=== PATIENT | female | born 1950 | race Caucasian/White ===

== ENCOUNTER 2016-07-03 12:10 | Emergency (ER) | payer MEDICARE, MEDICAID ==
[2016-07-03] MEDS ORDERED: NS 0.9% 1000 ML* 1,000 ML IV ONE (13:00)
[2016-07-03 13:14] LABS: Hematocrit 43 % (35-47); Hemoglobin 13.8 g/dl (12.0-16.0); Mean Corpuscular HGB Conc 32 g/dl (31-36); Mean Corpuscular Hemoglobin 28 pg (27-31); Mean Corpuscular Volume 86 fL (80-97); Mean Platelet Volume 8 um3 (7.4-10.4); Red Cell Distribution Width 14 % (10.5-15); White Blood Count 5.9 10^3/ul (3.5-10.8)
--- NOTE | 2016-07-03 13:24 | RAD ---
HISTORY: Weakness COMPARISONS: None VIEWS:1: Single frontal portable view of the chest at 1:11 PM FINDINGS: LINES AND TUBES: None. CARDIOMEDIASTINAL SILHOUETTE: The cardiomediastinal silhouette is normal for portable technique. PLEURA: The costophrenic angles are sharp. No pleural abnormalities are noted. LUNG PARENCHYMA: The lungs are clear. ABDOMEN: The upper abdomen is clear. There is no subphrenic gas. BONES AND SOFT TISSUES: No bone or soft tissue abnormalities are noted. IMPRESSION: NO ACTIVE CARDIOPULMONARY DISEASE.
[2016-07-03 13:31] LABS: Albumin 4.6 g/dL (3.2-5.2); BUN/Creatinine Ratio 29.3 (8-20); C Reactive Protein 3.78 mg/L (< 5.00); Calcium 10.1 mg/dL (8.6-10.3); EGFR African American 51.2 (>60); EGFR Non-African American 39.8 (>60); Globulin 3.7 g/dL (2-4); Magnesium 1.7 mg/dL (1.9-2.7); Potassium 3.7 mmol/L (3.5-5.0); Total Bilirubin 0.6 mg/dL (0.2-1.0); Total Protein 8.3 g/dL (6.4-8.9); Troponin I 0.03 ng/mL (<0.04)
[2016-07-03 14:03] LABS: TSH (Thyroid Stimulating Horm) 2.07 mcIU/mL (0.34-5.60)
[2016-07-03 14:31] LABS: Urine Bacteria Absent (Absent); Urine Bilirubin Negative (Negative); Urine Glucose Negative (Negative); Urine Nitrite Negative (Negative)
[2016-07-03 16:09] LABS: Urine Bacteria Absent (Absent); Urine Bilirubin Negative (Negative); Urine Glucose Negative (Negative); Urine Nitrite Negative (Negative)
[2016-07-03 16:41] VITALS: BP 132/62
[2016-07-03] MEDS ORDERED: Magnesium Oxide TAB* 400 MG PO ONE (16:55)
--- NOTE | 2016-07-03 17:03 | ED ---
Daryl Cruz Billy, scribed for Mikhail Santana MD on 07/03/16 at 1259 . Complex/Multi-Sys Presentation - HPI Summary HPI Summary: Patient is a 66 year-old female coming to [facility] for evaluation of generalized weakness, fatigue, and decreased appetite. Her daughter is here from [place] with her and she states that the patient has not left the apartment in a week, which is not normal for her. Daughter is also quite unsure if the patient has been taking her daily medications. The patient was treated for a UTI 2 weeks ago , and it had appeared that her symptoms were improving until 1 week ago. No known fevers, chills, vomiting, or diarrhea. No cough. There is some burning with urination. - History Of Current Complaint Chief Complaint: EDWeakness Time Seen by Provider: 07/03/16 12:52 Hx Obtained From: Patient Onset/Duration: Gradual Onset, Lasting Days Timing: Constant Severity Currently: Moderate Severity Initially: Moderate Aggravating Factor(s): none Alleviating Factor(s): none Associated Signs And Symptoms: Positive: Weakness, Nausea, Dysuria. Negative: Cough, Vomiting, Diarrhea, Fever - Allergies/Home Medications Allergies/Adverse Reactions: Allergies Allergy/AdvReac Type Severity Reaction Status Date / Time Sulfa Antibiotics Allergy Hives Verified 07/03/16 13:20 PMH/Surg Hx/FS Hx/Imm Hx Endocrine/Hematology History: Reports: Hx Diabetes, Hx Thyroid Disease Cardiovascular History: Reports: Hx Hypercholesterolemia, Hx Hypertension - Surgical History Surgery Procedure, Year, and Place: cholecystectomy, hysterectomy Infectious Disease History: No Infectious Disease History: Denies: Traveled Outside the [place] in Last 30 Days - Family History Known Family History: Positive: Hypertension, Diabetes - Social History Alcohol Use: None Hx Substance Use: No Substance Use Type: Reports: None Hx Tobacco Use: No Smoking Status (MU): Never Smoked Tobacco Review of Systems Positive: Fatigue. Negative: Fever, Chills Negative: Cough Gastrointestinal: Other - decreased oral intake Positive: Nausea. Negative: Vomiting, Diarrhea Positive: dysuria Positive: Weakness All Other Systems Reviewed And Are Negative: Yes Physical Exam - Summary Physical Exam Summary: VITAL SIGNS: Reviewed. GENERAL: Patient is an obese female who is lying comfortable in the stretcher. Patient is not in any acute respiratory distress. HEAD AND FACE: No signs of trauma. No ecchymosis, hematomas or skull depressions. No sinus tenderness. EYES: PERRLA, EOMI x 2, No injected conjunctiva, no nystagmus. EARS: Hearing grossly intact. Ear canals and tympanic membranes are within normal limits. MOUTH: Oropharynx within normal limits. NECK: Supple, trachea is midline, no adenopathy, no JVD, no carotid bruit, no c- spine tenderness, neck with full ROM. CHEST: Symmetric, no tenderness at palpation LUNGS: Clear to auscultation bilaterally. No wheezing or crackles. CVS: Regular rate and rhythm, S1 and S2 present, no murmurs or gallops appreciated. ABDOMEN: Soft, non-tender. No signs of distention. No rebound no guarding, and no masses palpated. Bowel sounds are normal. EXTREMITIES: FROM in all major joints, no edema, no cyanosis or clubbing. NEURO: Alert and oriented x 3. No acute neurological deficits. Speech is normal and follows commands. SKIN: Dry and warm Triage Information Reviewed: Yes Vital Signs On Initial Exam: Initial Vitals Temp Pulse Resp BP Pulse Ox 97.9 F 89 16 151/68 100 07/03/16 12:14 07/03/16 12:14 07/03/16 12:14 07/03/16 12:14 07/03/16 12:14 Vital Signs Reviewed: Yes Diagnostics - Vital Signs Vital Signs Temp Pulse Resp BP Pulse Ox 07/03/16 12:14 97.9 F 89 16 151/68 100 - Laboratory Lab Results: Lab Results 07/03/16 07/03/16 07/03/16 Range/Units 12:50 13:00 13:00 WBC 5.9 (3.5-10.8) 10^3/ul RBC 5.00 (4.0-5.4) 10^6/ul Hgb 13.8 (12.0-16.0) g/dl Hct 43 (35-47) % MCV 86 (80-97) fL MCH 28 (27-31) pg MCHC 32 (31-36) g/dl RDW 14 (10.5-15) % Plt Count 213 (150-450) 10^3/ul MPV 8 (7.4-10.4) um3 Neut % (Auto) 69.2 (38-83) % Lymph % (Auto) 22.8 L (25-47) % [place] % (Auto) 7.1 (1-9) % Eos % (Auto) 0.7 (0-6) % Baso % (Auto) 0.2 (0-2) % Absolute Neuts (auto) 4.1 (1.5-7.7) 10^3/ul Absolute Lymphs (auto) 1.3 (1.0-4.8) 10^3/ul Absolute Monos (auto) 0.4 (0-0.8) 10^3/ul Absolute Eos (auto) 0 (0-0.6) 10^3/ul Absolute Basos (auto) 0 (0-0.2) 10^3/ul Absolute Nucleated RBC 0.01 10^3/ul Nucleated RBC % 0.2 Sodium 138 (133-145) mmol/L Potassium 3.7 (3.5-5.0) mmol/L Chloride 99 L (101-111) mmol/L Carbon Dioxide 26 (22-32) mmol/L Anion Gap 13 H (2-11) mmol/L BUN 39 H (6-24) mg/dL Creatinine 1.33 H (0.51-0.95) mg/dL Est GFR ( Amer) 51.2 (>60) Est GFR (Non-Af Amer) 39.8 (>60) BUN/Creatinine Ratio 29.3 H (8-20) Glucose 133 H (70-100) mg/dL Lactic Acid (0.5-2.0) mmol/L Calcium 10.1 (8.6-10.3) mg/dL Magnesium 1.7 L (1.9-2.7) mg/dL Total Bilirubin 0.60 (0.2-1.0) mg/dL AST 26 (13-39) U/L ALT 23 (7-52) U/L Alkaline Phosphatase 86 (34-104) U/L Troponin I 0.03 (<0.04) ng/mL C-Reactive Protein 3.78 (< 5.00) mg/L B-Natriuretic Peptide ( - 100) pg/mL Total Protein 8.3 (6.4-8.9) g/dL Albumin 4.6 (3.2-5.2) g/dL Globulin 3.7 (2-4) g/dL Albumin/Globulin Ratio 1.2 (1-3) TSH 2.07 (0.34-5.60) mcIU/mL Urine Color Yellow Urine Appearance Cloudy Urine pH 5.0 (5-9) Ur Specific [place] 1.021 (1.010-1.030) Urine Protein 1+(30 mg/dl) H (Negative) Urine Ketones 1+ H (Negative) Urine Blood 1+ H (Negative) Urine Nitrate Negative (Negative) Urine Bilirubin Negative (Negative) Urine Urobilinogen Negative (Negative) Ur Leukocyte Esterase 3+ H (Negative) Urine WBC (Auto) 3+(>20/hpf) H (Absent) Urine RBC (Auto) 2+(6-10/hpf) H (Absent) Ur Squamous Epith Cells Present H (Absent) Ur Renal Epithelial Cell Present H (Absent) Urine Bacteria Absent (Absent) Hyaline Casts Present H (Absent) Urine Glucose Negative (Negative) 07/03/16 07/03/16 07/03/16 Range/Units 13:00 13:00 15:06 WBC (3.5-10.8) 10^3/ul RBC (4.0-5.4) 10^6/ul Hgb (12.0-16.0) g/dl Hct (35-47) % MCV (80-97) fL MCH (27-31) pg MCHC (31-36) g/dl RDW (10.5-15) % Plt Count (150-450) 10^3/ul MPV (7.4-10.4) um3 Neut % (Auto) (38-83) % Lymph % (Auto) (25-47) % [place] % (Auto) (1-9) % Eos % (Auto) (0-6) % Baso % (Auto) (0-2) % Absolute Neuts (auto) (1.5-7.7) 10^3/ul Absolute Lymphs (auto) (1.0-4.8) 10^3/ul Absolute Monos (auto) (0-0.8) 10^3/ul Absolute Eos (auto) (0-0.6) 10^3/ul Absolute Basos (auto) (0-0.2) 10^3/ul Absolute Nucleated RBC 10^3/ul Nucleated RBC % Sodium (133-145) mmol/L Potassium (3.5-5.0) mmol/L Chloride (101-111) mmol/L Carbon Dioxide (22-32) mmol/L Anion Gap (2-11) mmol/L BUN (6-24) mg/dL Creatinine (0.51-0.95) mg/dL Est GFR ( Amer) (>60) Est GFR (Non-Af Amer) (>60) BUN/Creatinine Ratio (8-20) Glucose (70-100) mg/dL Lactic Acid 1.6 (0.5-2.0) mmol/L Calcium (8.6-10.3) mg/dL Magnesium (1.9-2.7) mg/dL Total Bilirubin (0.2-1.0) mg/dL AST (13-39) U/L ALT (7-52) U/L Alkaline Phosphatase (34-104) U/L Troponin I (<0.04) ng/mL C-Reactive Protein (< 5.00) mg/L B-Natriuretic Peptide 23 ( - 100) pg/mL Total Protein (6.4-8.9) g/dL Albumin (3.2-5.2) g/dL Globulin (2-4) g/dL Albumin/Globulin Ratio (1-3) TSH (0.34-5.60) mcIU/mL Urine Color Yellow Urine Appearance Clear Urine pH 5.0 (5-9) Ur Specific [place] 1.021 (1.010-1.030) Urine Protein Negative (Negative) Urine Ketones 1+ H (Negative) Urine Blood 1+ H (Negative) Urine Nitrate Negative (Negative) Urine Bilirubin Negative (Negative) Urine Urobilinogen Negative (Negative) Ur Leukocyte Esterase Negative (Negative) Urine WBC (Auto) Trace(0-5/hpf) (Absent) Urine RBC (Auto) Trace(0-2/hpf) (Absent) Ur Squamous Epith Cells Present H (Absent) Ur Renal Epithelial Cell (Absent) Urine Bacteria Absent (Absent) Hyaline Casts (Absent) Urine Glucose Negative (Negative) Result Diagrams: 07/03/16 13:00 07/03/16 13:00 Lab Statement: Any lab studies that have been ordered have been reviewed, and results considered in the medical decision making process. - Radiology CXR Xray Interpretation: No Acute Changes Radiology Interpretation Completed By: Radiologist - EKG 1320 EKG Interpretation: NSR 83 bpm, no STEMI Re-Evaluation - Re-Evaluation First Eval Re-Evaluation Time: 16:03 Second Eval Re-Evaluation Time: 16:34 Comment: Labs reviewed, plan for discharge discussed with the patient and family. Complex Multi-Symp Course/Dx Assessment/Plan: Patient is a 66 year-old female coming to [facility] for evaluation of generalized weakness, fatigue, and decreased appetite. Her daughter is here from [place] with her and she states that the patient has not left the apartment in a week, which is not normal for her. Daughter is also quite unsure if the patient has been taking her daily medications. The patient was treated for a UTI 2 weeks ago, and it had appeared that her symptoms were improving until 1 week ago. No known fevers, chills, vomiting, or diarrhea. No cough. There is some burning with urination. Test results WNL except for increased Bun and creatinine of 39/1.33 and glucose of 133. Magnesium 1.7 for which she was given magnesium. UA shows no acute UTI. The patient was hydrated and now the patient is doing much better. I believe there is a component of dehydration and mild depression of her symptoms. The patient and her daughter agrees. She reports that she will be going home to [place] with her daughter. - Diagnoses Differential Diagnoses/HQI/PQRI: Urinary Tract Infection, Other - Weakness, dehydration Provider Diagnoses: Weakness, Dehydration Discharge - Discharge Plan Condition: Stable Disposition: HOME Patient Education Materials: Weakness (ED), Dehydration (ED) Referrals: Adam Garcias MD [Primary Care Provider] - The documentation as recorded by the Daryl agustin Billy accurately reflects the service I personally performed and the decisions made by me, Mikhail Santana MD.
== END 2016-07-03 16:49 | disposition home or self-care (01) ==
LOC: ED 12:10
DX: R53.1 Weakness (principal); E86.0 Dehydration; R11.0 Nausea; R30.0 Dysuria
CPT/HCPCS: 36415; 71010; 80053; 81003; 81015; 83605; 83735; 83880; 84443; 84484; 85025; 86140; 87086; 93005; 99283

== ENCOUNTER → 2016-08-05 12:09 | Emergency (ER) | payer MEDICARE, MEDICAID ==
[~2016-08-05 12:09] MED LIST: NS 0.9% 1000 ML* 2,000 ML IV ONE; cefTRIAXone(*) 1 GM in NS 0.9% 50 ML* 50 ML IVPB ONE
[2016-08-05 13:44] LABS: Hematocrit 36 % (35-47); Hemoglobin 12.1 g/dl (12.0-16.0); Mean Corpuscular HGB Conc 34 g/dl (31-36); Mean Corpuscular Hemoglobin 28 pg (27-31); Mean Corpuscular Volume 84 fL (80-97); Mean Platelet Volume 8 um3 (7.4-10.4); Red Blood Count 4.31 10^6/ul (4.0-5.4); Red Cell Distribution Width 15 % (10.5-15); White Blood Count 4.2 10^3/ul (3.5-10.8)
[2016-08-05 13:59] LABS: ALT 17 U/L (7-52); AST 21 U/L (13-39); Albumin 4.3 g/dL (3.2-5.2); Alkaline Phosphatase 83 U/L (34-104); Anion Gap 12 mmol/L (2-11); BUN/Creatinine Ratio 22.9 (8-20); Blood Urea Nitrogen 33 mg/dL (6-24); CO2 Carbon Dioxide 25 mmol/L (22-32); Calcium 9.6 mg/dL (8.6-10.3); Chloride 98 mmol/L (101-111); EGFR African American 46.7 (>60); EGFR Non-African American 36.3 (>60); Glucose 126 mg/dL (70-100); Magnesium 1.9 mg/dL (1.9-2.7); Potassium 3.3 mmol/L (3.5-5.0); Sodium 135 mmol/L (133-145); Total Protein 7.3 g/dL (6.4-8.9)
[2016-08-05 14:00] LABS: Troponin I 0.01 ng/mL (<0.04)
--- NOTE | 2016-08-05 14:19 | RAD ---
Indication: Altered mental status. Question pneumonia. Comparison: July 03, 2016 Technique: Upright AP 1330 hours Report: Large body habitus limits image quality. Suboptimal inspiration with mild crowding of the pulmonary markings. No compelling alveolar consolidation, pleural effusion, pneumothorax. Upper normal heart size. Unremarkable central pulmonary vasculature and mediastinal contours. IMPRESSION: No evidence for acute intrathoracic disease.
[2016-08-05 14:20] LABS: Acetaminophen < 15 mcg/mL; Alcohol < 10 mg/dL (<10); Salicylate < 2.50 mg/dL (<30)
[2016-08-05 14:30] LABS: TSH (Thyroid Stimulating Horm) 3.78 mcIU/mL (0.34-5.60)
--- NOTE | 2016-08-05 15:11 | RAD ---
INDICATION: Altered mental status. COMPARISON: There are no prior studies available for comparison. TECHNIQUE: Contiguous axial sections of the brain were obtained from the skull base to the vertex without contrast. FINDINGS: The ventricles, cisterns and sulci are within normal limits. No significant focal abnormality or mass effect is seen. There is no evidence for hemorrhage. No significant focal osseous abnormality is seen. The visualized portion of the paranasal sinuses and mastoid air cells appear clear. IMPRESSION: NO EVIDENCE FOR GROSS ACUTE INFARCT, MASS EFFECT OR HEMORRHAGE.
[2016-08-05 15:58] LABS: Urine Bacteria Absent (Absent); Urine Bilirubin Negative (Negative); Urine Glucose Negative (Negative); Urine Nitrite Negative (Negative)
[2016-08-05 16:03] LABS: Benzodiazepine Urine Screen None Detected (None Detect)
--- NOTE | 2016-08-05 22:50 | ED ---
Wendy Cruz Thomas, scribed for Jayden Mckeon MD on 08/05/16 at 1318 . Altered Mental Status - HPI Summary HPI Summary: Pt is a 66 y/o female brought in at the advice of her two daughters due to concerns that she was not taking her medication, Seroquel, and that she had been experiencing auditory hallucinations and knocking on neighbors' doors. The pt notes that she has not been taking Seroquel for a few nights. Additionally c/ o diaphoresis. The pt denies confusion, though her daughters express that the pt has been confused recently. The patient additionally denies CARRANZA, weakness, numbness, fever, chills, lack of appetite. PMHx: NIDDM. The patient is not on a blood thinner. The patient says that she is taking Metoprolol and is taking thyroid medication. Both daughters state that for the last two nights the pt has had auditory and visual hallucinations, has been confused, and has been banging on neighbors' doors last at night at [place]. The pt says that the last time she heard voices was when she last had a UTI. The daughters are concerned that the the pt has some dementia. - History Of Current Complaint Chief Complaint: EDAltMentalStatus Stated Complaint: MHE Hx Obtained From: Patient, Family/Mechanical Maintenance - daughter (contact saved on phone Last Known Well Date: Sx began three days ago Character: Confusion Associated Signs And Symptoms: Negative: Fever, Headache, Weakness - Allergies/Home Medications Allergies/Adverse Reactions: Allergies Allergy/AdvReac Type Severity Reaction Status Date / Time Sulfa Antibiotics Allergy Hives Verified 07/03/16 13:20 Home Medications: Home Medications Atorvastatin* [Lipitor*] 20 mg PO BEDTIME 08/05/16 [History Confirmed 08/05/16] Famotidine TAB* [Pepcid 20 MG TAB*] 20 mg PO BID 08/05/16 [History Confirmed ] Fluticasone NASAL SPRAY 50MCG* [Flonase NASAL SPRAY 50MCG*] 2 spray BOTH NARES DAILY PRN 08/05/16 [History Confirmed 08/05/16] Ibuprofen TAB* [Motrin TAB* 600 MG] 600 mg PO Q8H PRN 08/05/16 [History Confirmed 08/05/16] Ketoconazole 2 % CREAM (NF) [Nizoral 2% CREAM (NF)] 1 applic TOPICAL BID [History Confirmed 08/05/16] LevoCETirizine TAB (NF) [Xyzal TAB (NF)] 5 mg PO DAILY PRN 08/05/16 [History Confirmed 08/05/16] Levothyroxine TAB* [Synthroid TAB*] 125 mcg PO DAILY 08/05/16 [History Confirmed 08/05/16] Metoprolol Succinate XL TAB* [Toprol XL TAB*] 25 mg PO DAILY 08/05/16 [History Confirmed 08/05/16] Montelukast Sodium TAB* [Singulair TAB*] 10 mg PO BEDTIME PRN 08/05/16 [History Confirmed 08/05/16] Nystatin CREAM* [Nystatin Cream*] 1 applic TOPICAL BID PRN 08/05/16 [History Confirmed 08/05/16] Pioglitazone HCl [Actos] 30 mg PO QPM 08/05/16 [History Confirmed 08/05/16] Pregabalin CAP(*) [Lyrica CAP(*)] 150 mg PO BEDTIME 08/05/16 [History Confirmed 08/05/16] QUEtiapine TAB* [SEROquel TAB*] 100 mg PO DAILY 08/05/16 [History Confirmed ] Triamterene/HCTZ 37.5-25 MG* [Dyazide CAP*] 1 cap PO DAILY 08/05/16 [History Confirmed 08/05/16] Venlafaxine EXT RELEASE CAP* [Effexor Xr CAP*] 300 mg PO DAILY WITH MEAL [History Confirmed 08/05/16] busPIRone TAB* [Buspar TAB *] 15 mg PO TID 08/05/16 [History Confirmed 08/05/16] glipiZIDE TAB* [Glucotrol TAB*] 10 mg PO BID 08/05/16 [History Confirmed ] metFORMIN* [Glucophage 1000 MG TAB *] 1,000 mg PO BID 08/05/16 [History Confirmed 08/05/16] PMH/Surg Hx/FS Hx/Imm Hx Previously Healthy: No Endocrine/Hematology History: Reports: Hx Diabetes, Hx Thyroid Disease Cardiovascular History: Reports: Hx Hypercholesterolemia, Hx Hypertension - Surgical History Surgery Procedure, Year, and Place: cholecystectomy, hysterectomy Infectious Disease History: No Infectious Disease History: Denies: Traveled Outside the [place] in Last 30 Days - Family History Known Family History: Positive: Hypertension, Diabetes - Social History Alcohol Use: None Hx Substance Use: No Substance Use Type: Reports: None Hx Tobacco Use: No Smoking Status (MU): Never Smoked Tobacco Review of Systems Positive: Skin Diaphoresis, Other - NEG: decrease in appetite. Negative: Fever , Chills Neurological: Other - POS: confusion,POS: auditory hallucinations, visual hallucinations (all per daughters). Patient denies confusion though daughters report confusion. Negative: Headache, Weakness, Numbness All Other Systems Reviewed And Are Negative: Yes Physical Exam - Summary Physical Exam Summary: The patient is well-nourished in no acute distress and in no acute pain. The skin is diaphoretic and skin color reflects adequate perfusion. Decreased skin turgor. HEENT: The head is normocephalic and atraumatic. The pupils are equal and reactive. The conjunctivae are clear and without drainage. Nares are patent and without drainage. Mouth reveals dry mucous membranes and the throat is without erythema and exudate. The external ears are intact. The ear canals are patent and without drainage. The tympanic membranes are intact. Neck is supple with full range of motion and non-tender. There are no carotid bruits. There is no neck vein distension. Respiratory: Chest is non-tender. Lungs are clear to auscultation and breath sounds are symmetrical and equal. Cardiovascular: Hear is regular rate and rhythm. There is no murmur or rub auscultated. There is no peripheral edema and pulses are symmetrical and equal. Abdomen: The abdomen is soft, obese, and non-tender. There are normal bowel sounds heard in all four quadrants and there is no organomegaly palpated. Musculoskeletal: There is no back pain noted. Extremities are non-tender with full range of motion. There is good capillary refill. There is no peripheral edema or calf tenderness elicited. Neurological: Auditory and visual hallucinations. Follows commands. Patient is alert and oriented to person, place and time. The patient has symmetrical motor strength in all four extremities. Cranial nerves are grossly intact. Deep tendon reflexes are symmetrical and equal in all four extremities. Psychiatric: The patient has an appropriate affect and does not exhibit any anxiety or depression. Triage Information Reviewed: Yes Vital Signs On Initial Exam: Initial Vitals Temp Pulse Resp BP Pulse Ox 97.3 F 87 18 133/60 99 08/05/16 12:11 08/05/16 12:11 08/05/16 12:11 08/05/16 12:11 08/05/16 12:11 Vital Signs Reviewed: Yes Diagnostics - Vital Signs Vital Signs Temp Pulse Resp BP Pulse Ox 08/05/16 12:16 97.3 F 86 20 133/60 97 08/05/16 12:11 97.3 F 87 18 133/60 99 - Laboratory Lab Results: Lab Results 08/05/16 08/05/16 08/05/16 Range/Units 13:20 13:20 13:20 WBC 4.2 (3.5-10.8) 10^3/ul RBC 4.31 (4.0-5.4) 10^6/ul Hgb 12.1 (12.0-16.0) g/dl Hct 36 (35-47) % MCV 84 (80-97) fL MCH 28 (27-31) pg MCHC 34 (31-36) g/dl RDW 15 (10.5-15) % Plt Count 204 (150-450) 10^3/ul MPV 8 (7.4-10.4) um3 Neut % (Auto) 65.4 (38-83) % Lymph % (Auto) 25.4 (25-47) % [place] % (Auto) 7.8 (1-9) % Eos % (Auto) 1.2 (0-6) % Baso % (Auto) 0.2 (0-2) % Absolute Neuts (auto) 2.8 (1.5-7.7) 10^3/ul Absolute Lymphs (auto) 1.1 (1.0-4.8) 10^3/ul Absolute Monos (auto) 0.3 (0-0.8) 10^3/ul Absolute Eos (auto) 0 (0-0.6) 10^3/ul Absolute Basos (auto) 0 (0-0.2) 10^3/ul Absolute Nucleated RBC 0 10^3/ul Nucleated RBC % 0 Sodium 135 (133-145) mmol/L Potassium 3.3 L (3.5-5.0) mmol/L Chloride 98 L (101-111) mmol/L Carbon Dioxide 25 (22-32) mmol/L Anion Gap 12 H (2-11) mmol/L BUN 33 H (6-24) mg/dL Creatinine 1.44 H (0.51-0.95) mg/dL Est GFR ( Amer) 46.7 (>60) Est GFR (Non-Af Amer) 36.3 (>60) BUN/Creatinine Ratio 22.9 H (8-20) Glucose 126 H (70-100) mg/dL Lactic Acid 0.7 (0.5-2.0) mmol/L Calcium 9.6 (8.6-10.3) mg/dL Magnesium 1.9 (1.9-2.7) mg/dL Total Bilirubin 0.50 (0.2-1.0) mg/dL AST 21 (13-39) U/L ALT 17 (7-52) U/L Alkaline Phosphatase 83 (34-104) U/L Troponin I 0.01 (<0.04) ng/mL Total Protein 7.3 (6.4-8.9) g/dL Albumin 4.3 (3.2-5.2) g/dL Globulin 3.0 (2-4) g/dL Albumin/Globulin Ratio 1.4 (1-3) TSH 3.78 (0.34-5.60) mcIU/mL Urine Color Urine Appearance Urine pH (5-9) Ur Specific [place] (1.010-1.030) Urine Protein (Negative) Urine Ketones (Negative) Urine Blood (Negative) Urine Nitrate (Negative) Urine Bilirubin (Negative) Urine Urobilinogen (Negative) Ur Leukocyte Esterase (Negative) Urine WBC (Auto) (Absent) Urine RBC (Auto) (Absent) Ur Squamous Epith Cells (Absent) Ur Renal Epithelial Cell (Absent) Urine Bacteria (Absent) Urine Glucose (Negative) Salicylates < 2.50 (<30) mg/dL Urine Opiates Screen (None Detect) Acetaminophen < 15 mcg/mL Ur Barbiturates Screen (None Detect) Ur Phencyclidine Scrn (None Detect) Ur Amphetamines Screen (None Detect) U Benzodiazepines Scrn (None Detect) Urine Cocaine Screen (None Detect) U Cannabinoids Screen (None Detect) Serum Alcohol < 10 (<10) mg/dL 08/05/16 08/05/16 Range/Units 15:35 15:35 WBC (3.5-10.8) 10^3/ul RBC (4.0-5.4) 10^6/ul Hgb (12.0-16.0) g/dl Hct (35-47) % MCV (80-97) fL MCH (27-31) pg MCHC (31-36) g/dl RDW (10.5-15) % Plt Count (150-450) 10^3/ul MPV (7.4-10.4) um3 Neut % (Auto) (38-83) % Lymph % (Auto) (25-47) % [place] % (Auto) (1-9) % Eos % (Auto) (0-6) % Baso % (Auto) (0-2) % Absolute Neuts (auto) (1.5-7.7) 10^3/ul Absolute Lymphs (auto) (1.0-4.8) 10^3/ul Absolute Monos (auto) (0-0.8) 10^3/ul Absolute Eos (auto) (0-0.6) 10^3/ul Absolute Basos (auto) (0-0.2) 10^3/ul Absolute Nucleated RBC 10^3/ul Nucleated RBC % Sodium (133-145) mmol/L Potassium (3.5-5.0) mmol/L Chloride (101-111) mmol/L Carbon Dioxide (22-32) mmol/L Anion Gap (2-11) mmol/L BUN (6-24) mg/dL Creatinine (0.51-0.95) mg/dL Est GFR ( Amer) (>60) Est GFR (Non-Af Amer) (>60) BUN/Creatinine Ratio (8-20) Glucose (70-100) mg/dL Lactic Acid (0.5-2.0) mmol/L Calcium (8.6-10.3) mg/dL Magnesium (1.9-2.7) mg/dL Total Bilirubin (0.2-1.0) mg/dL AST (13-39) U/L ALT (7-52) U/L Alkaline Phosphatase (34-104) U/L Troponin I (<0.04) ng/mL Total Protein (6.4-8.9) g/dL Albumin (3.2-5.2) g/dL Globulin (2-4) g/dL Albumin/Globulin Ratio (1-3) TSH (0.34-5.60) mcIU/mL Urine Color Yellow Urine Appearance Cloudy Urine pH 5.0 (5-9) Ur Specific [place] 1.012 (1.010-1.030) Urine Protein Negative (Negative) Urine Ketones 1+ H (Negative) Urine Blood Negative (Negative) Urine Nitrate Negative (Negative) Urine Bilirubin Negative (Negative) Urine Urobilinogen Negative (Negative) Ur Leukocyte Esterase 3+ H (Negative) Urine WBC (Auto) 3+(>20/hpf) H (Absent) Urine RBC (Auto) Absent (Absent) Ur Squamous Epith Cells Present H (Absent) Ur Renal Epithelial Cell Present H (Absent) Urine Bacteria Absent (Absent) Urine Glucose Negative (Negative) Salicylates (<30) mg/dL Urine Opiates Screen None detected (None Detect) Acetaminophen mcg/mL Ur Barbiturates Screen None detected (None Detect) Ur Phencyclidine Scrn None detected (None Detect) Ur Amphetamines Screen None detected (None Detect) U Benzodiazepines Scrn None detected (None Detect) Urine Cocaine Screen None detected (None Detect) U Cannabinoids Screen None detected (None Detect) Serum Alcohol (<10) mg/dL Result Diagrams: 08/05/16 13:20 08/05/16 13:20 Lab Statement: Any lab studies that have been ordered have been reviewed, and results considered in the medical decision making process. - Radiology CXR Xray Interpretation: No Acute Changes - No evidence for acute intrathoracic disease. Radiology Interpretation Completed By: Radiologist - CT Brain CT CT Interpretation: No Acute Changes - NO EVIDENCE FOR GROSS ACUTE INFARCT, MASS EFFECT OR HEMORRHAGE CT Interpretation Completed By: Radiologist - EKG 1325 Cardiac Rate: NL - 76 bpm EKG Interpretation: Paced rhythm, LBBB Altered Mental Statu Course/Dx - Course Assessment/Plan: Pt is a 66 y/o female brought in at the advice of her two daughters due to concerns that she was not taking her medication, Seroquel, and that she had been experiencing auditory hallucinations and knocking on neighbors ' doors. The pt notes that she has not been taking Seroquel for a few nights. Additionally c/o diaphoresis. The pt denies confusion, though her daughters express that the pt has been confused recently. The patient additionally denies CARRANZA, weakness, numbness, fever, chills, lack of appetite. PMHx: NIDDM. The patient is not on a blood thinner. The patient says that she is taking Metoprolol and is taking thyroid medication. Both daughters state that for the last two nights the pt has had auditory and visual hallucinations, has been confused, and has been banging on neighbors' doors last at night at [place]. The pt says that the last time she heard voices was when she last had a UTI. The daughter are concerned that the the pt has some dementia. UA positive for UTI. Medically cleared for MHE at 1605. After MHE, it has been determined that the patient can be D/C to home. She will be D/C with Dx of UTI and psychosis and an Rx for Abx. She understands and agrees. - Diagnoses Differential Diagnosis/HQI/PQRI: Intracranial Bleed, Metabolic Disorder, Other - psychosis due to non-compliance Discharge Diagnoses: UTI (urinary tract infection), Psychosis Discharge - Discharge Plan Condition: Stable Disposition: HOME Prescriptions: Ciprofloxacin TAB* [Cipro 500 MG TAB*] 500 mg PO BID #14 tab Patient Education Materials: Urinary Tract Infection in Women (ED), Depression (ED), Brief Psychotic Disorder (ED) Referrals: Adam Garcias MD [Primary Care Provider] - 3 Days Jazmine Slater MD [Medical Doctor] - As Soon As Possible (A copy of your evaluation has been faxed to [facility], and it is recommended that you follow up with Dr. Slater at you earliest convenience for medication management.) The documentation as recorded by the Wendy agustin Thomas accurately reflects the service I personally performed and the decisions made by me, Jayden Mckeon MD.
[2016-08-05 23:59] VITALS: BP 144/64
== END | disposition home or self-care (01) ==
LOC: ED 12:09
DX: N39.0 Urinary tract infection, site not specified (principal); F29 Unspecified psychosis not due to a substance or known physiological condition
CPT/HCPCS: 36415; 70450; 71010; 80053; 80307; 80320; 80329; 81003; 81015; 83605; 83735; 84443; 84484; 85025; 87086; 93005; 99284; G0480; J0696

== ENCOUNTER 2016-09-03 12:22 | Observation (INO) | payer MEDICARE, MEDICAID ==
[2016-09-03 13:47] LABS: Hematocrit 41 % (35-47); Hemoglobin 13.4 g/dl (12.0-16.0); Mean Corpuscular HGB Conc 33 g/dl (31-36); Mean Corpuscular Hemoglobin 29 pg (27-31); Mean Corpuscular Volume 89 fL (80-97); Mean Platelet Volume 8 um3 (7.4-10.4); Red Blood Count 4.61 10^6/ul (4.0-5.4); Red Cell Distribution Width 16 % (10.5-15); White Blood Count 5.4 10^3/ul (3.5-10.8)
[2016-09-03 13:52] LABS: Benzodiazepine Urine Screen None Detected (None Detect)
[2016-09-03 13:58] LABS: Urine Bacteria Absent (Absent); Urine Bilirubin Negative (Negative); Urine Glucose Negative (Negative); Urine Nitrite Negative (Negative)
[2016-09-03 14:08] LABS: ALT 28 U/L (7-52); AST 31 U/L (13-39); Albumin 4.3 g/dL (3.2-5.2); Alkaline Phosphatase 70 U/L (34-104); Anion Gap 9 mmol/L (2-11); Blood Urea Nitrogen 21 mg/dL (6-24); CO2 Carbon Dioxide 26 mmol/L (22-32); Calcium 10.1 mg/dL (8.6-10.3); Chloride 102 mmol/L (101-111); EGFR African American 40.8 (>60); EGFR Non-African American 31.7 (>60); Globulin 3.5 g/dL (2-4); Glucose 144 mg/dL (70-100); Potassium 3.9 mmol/L (3.5-5.0); Sodium 137 mmol/L (133-145); Total Protein 7.8 g/dL (6.4-8.9)
[2016-09-03 14:30] LABS: Acetaminophen < 15 mcg/mL; Alcohol < 10 mg/dL (<10); Salicylate < 2.50 mg/dL (<30)
[2016-09-03 14:40] LABS: TSH (Thyroid Stimulating Horm) 83.75 mcIU/mL (0.34-5.60)
[2016-09-03] MEDS ORDERED: NS 0.9% 1000 ML* 1,000 ML IV ONE (14:56)
[2016-09-03 15:25] LABS: C Reactive Protein 1.21 mg/L (< 5.00)
[2016-09-03] MEDS ORDERED: Acetaminophen TAB* 325 MG PO PRN (16:32)
[2016-09-03] MEDS ORDERED: Dextrose 50% Syringe 50 ML* 25 GM/50 ML SYRINGE IV PUSH PRN (16:34)
[2016-09-03] MEDS ORDERED: Nystatin CREAM* 15 GM TUBE TOPICAL PRN (16:35)
[2016-09-03] MEDS ORDERED: Fluticasone NASAL SPRAY 50MCG* 16 gm SPRAY BTL BOTH NARES PRN (16:35)
[2016-09-03] MEDS ORDERED: Montelukast Sodium TAB* 10 MG PO PRN (16:35)
[2016-09-03] MEDS ORDERED: NS 0.9% 1000 ML* 1,000 ML IV SCH (16:45)
[2016-09-03] MEDS ORDERED: cefTRIAXone VIAL(*) 1,000 MG in NS 0.9% 50 ML* 50 ML IVPB ONE ×2 (17:00→17:28)
[2016-09-03] MEDS ORDERED: cefTRIAXone(*) 1 GM ADVAN ONE (17:23)
[2016-09-03] MEDS ORDERED: Atorvastatin* 20 MG TAB PO SCH (21:00)
[2016-09-03] MEDS ORDERED: Pregabalin CAP(*) 100 MG PO SCH (21:00)
[2016-09-03] MEDS: Heparin VIAL(*) 5000 UNITS/ML VIAL (FIVE THOUSAND) SUBCUT SCH (21:28)
[2016-09-03] MEDS: busPIRone TAB* 15 MG PO SCH (21:28)
[2016-09-03] MEDS: Insulin LISPRO* 1 UNITS UNIT SUBCUT SCH (22:06)
--- NOTE | 2016-09-03 23:30 | ED ---
Psychiatric Complaint - HPI Summary HPI Summary: 66 female presents with complaints of being told she needed a mental health evaluation by her doctor. States she does not know why she is here. She was not a very good historian as she switched topics frequently. Denies suicidal thoughts, ideation, homicidal thoughts, and hallucinations. States she does have a thyroid disease/infection that she is being treated with Synthroid for. States she has been taking her medications, besides seroquel which she was told to discontinue, per patient. Has psych history. No alcohol or drug use. No complaints at this time. Denies urinary complaints, does frequently have UTI's. - History Of Current Complaint Chief Complaint: EDMentalHealth Time Seen by Provider: 09/03/16 12:50 Hx Obtained From: Patient ?: No Onset/Duration: Gradual Onset, Lasting Days Timing: Constant Severity Currently: None Character: Frustrated - for being in the ED, delirious Aggravating Factor(s): Medication Non-compliance Alleviating Factor(s): Nothing Associated Signs And Symptoms: Positive: Confused - delirious Related History: Positive For: Prior Psychiatric Issues Has Suicidal: Denies: Thoughts, With A Plan Has Homicidal: Denies: Thoughts, With A Plan - Allergies/Home Medications Allergies/Adverse Reactions: Allergies Allergy/AdvReac Type Severity Reaction Status Date / Time Sulfa Antibiotics Allergy Hives Verified 07/03/16 13:20 Home Medications: Home Medications Pioglitazone TAB* [Actos TAB*] 30 mg PO DAILY 09/03/16 [History Confirmed ] PMH/Surg Hx/FS Hx/Imm Hx Endocrine/Hematology History: Reports: Hx Diabetes, Hx Thyroid Disease Cardiovascular History: Reports: Hx Hypercholesterolemia, Hx Hypertension Sensory History: Reports: Hx Contacts or Glasses Denies: Hx Hearing Aid Opthamlomology History: Reports: Hx Contacts or Glasses - Surgical History Surgery Procedure, Year, and Place: cholecystectomy, hysterectomy Infectious Disease History: No Infectious Disease History: Denies: Traveled Outside the [place] in Last 30 Days - Family History Known Family History: Positive: Hypertension, Diabetes - Social History Alcohol Use: None Hx Substance Use: No Substance Use Type: Reports: None Hx Tobacco Use: No Smoking Status (MU): Never Smoked Tobacco Review of Systems Constitutional: Negative Eyes: Negative ENT: Negative Cardiovascular: Negative Respiratory: Negative Gastrointestinal: Negative Genitourinary: Negative Musculoskeletal: Negative Skin: Negative Neurological: Negative Psychological: Normal All Other Systems Reviewed And Are Negative: Yes Physical Exam Triage Information Reviewed: Yes Vital Signs On Initial Exam: Initial Vitals Temp Pulse Resp BP Pulse Ox 97.0 F 62 17 123/63 100 09/03/16 12:25 09/03/16 12:25 09/03/16 12:25 09/03/16 12:25 09/03/16 12:25 Vital Signs Reviewed: Yes Appearance: Positive: Well-Appearing - odor noted, poor hygeine, No Pain Distress, Well-Nourished Skin: Positive: Warm, Skin Color Reflects Adequate Perfusion, Dry Head/Face: Positive: Normal Head/Face Inspection Eyes: Positive: Normal, EOMI, DIANA, Conjunctiva Clear ENT: Positive: Hearing grossly normal Neck: Positive: Supple, Nontender, No Lymphadenopathy Respiratory/Lung Sounds: Positive: Clear to Auscultation, Breath Sounds Present. Negative: Rales, Rhonchi, Wheezes Cardiovascular: Positive: Normal, RRR, Pulses are Symmetrical in both Upper and Lower Extremities. Negative: Murmur, Rub Bowel Sounds: Positive: Present Musculoskeletal: Positive: Normal, Strength/ROM Intact Neurological: Positive: Normal, Sensory/Motor Intact, Alert, Oriented to Person Place, Time Psychiatric: Positive: Other - delirious, talking about random topics and switching frequently, however is A&Ox3 and able to answer questions appropriately. frustrated for being in ED and possibly having to be admitted - Abbie Coma Scale Best Eye Response: 4 - Spontaneous Best Motor Response: 6 - Obeys Commands Best Verbal Response: 5 - Oriented Coma Scale Total: 15 Diagnostics - Vital Signs Vital Signs Temp Pulse Resp BP Pulse Ox 09/03/16 12:25 97.0 F 62 17 123/63 100 - Laboratory Lab Results: Lab Results 09/03/16 09/03/16 09/03/16 Range/Units 13:21 13:21 13:36 WBC 5.4 (3.5-10.8) 10^3/ul RBC 4.61 (4.0-5.4) 10^6/ul Hgb 13.4 (12.0-16.0) g/dl Hct 41 (35-47) % MCV 89 (80-97) fL MCH 29 (27-31) pg MCHC 33 (31-36) g/dl RDW 16 H (10.5-15) % Plt Count 198 (150-450) 10^3/ul MPV 8 (7.4-10.4) um3 Neut % (Auto) 62.0 (38-83) % Lymph % (Auto) 29.8 (25-47) % [place] % (Auto) 6.1 (1-9) % Eos % (Auto) 1.4 (0-6) % Baso % (Auto) 0.7 (0-2) % Absolute Neuts (auto) 3.3 (1.5-7.7) 10^3/ul Absolute Lymphs (auto) 1.6 (1.0-4.8) 10^3/ul Absolute Monos (auto) 0.3 (0-0.8) 10^3/ul Absolute Eos (auto) 0.1 (0-0.6) 10^3/ul Absolute Basos (auto) 0 (0-0.2) 10^3/ul Absolute Nucleated RBC 0 10^3/ul Nucleated RBC % 0.1 Sodium (133-145) mmol/L Potassium (3.5-5.0) mmol/L Chloride (101-111) mmol/L Carbon Dioxide (22-32) mmol/L Anion Gap (2-11) mmol/L BUN (6-24) mg/dL Creatinine (0.51-0.95) mg/dL Est GFR ( Amer) (>60) Est GFR (Non-Af Amer) (>60) BUN/Creatinine Ratio (8-20) Glucose (70-100) mg/dL Calcium (8.6-10.3) mg/dL Total Bilirubin (0.2-1.0) mg/dL AST (13-39) U/L ALT (7-52) U/L Alkaline Phosphatase (34-104) U/L C-Reactive Protein (< 5.00) mg/L Total Protein (6.4-8.9) g/dL Albumin (3.2-5.2) g/dL Globulin (2-4) g/dL Albumin/Globulin Ratio (1-3) TSH (0.34-5.60) mcIU/mL Urine Color Yellow Urine Appearance Cloudy Urine pH 7.0 (5-9) Ur Specific [place] 1.011 (1.010-1.030) Urine Protein 2+(100 mg/dl) H (Negative) Urine Ketones Negative (Negative) Urine Blood Negative (Negative) Urine Nitrate Negative (Negative) Urine Bilirubin Negative (Negative) Urine Urobilinogen Negative (Negative) Ur Leukocyte Esterase 3+ H (Negative) Urine WBC (Auto) 3+(>20/hpf) H (Absent) Urine RBC (Auto) 2+(6-10/hpf) H (Absent) Ur Squamous Epith Cells Present H (Absent) Urine Bacteria Absent (Absent) Hyaline Casts Present H (Absent) Urine Glucose Negative (Negative) Salicylates (<30) mg/dL Urine Opiates Screen None detected (None Detect) Acetaminophen mcg/mL Ur Barbiturates Screen None detected (None Detect) Ur Phencyclidine Scrn None detected (None Detect) Ur Amphetamines Screen None detected (None Detect) U Benzodiazepines Scrn None detected (None Detect) Urine Cocaine Screen None detected (None Detect) U Cannabinoids Screen None detected (None Detect) Serum Alcohol (<10) mg/dL 09/03/16 Range/Units 13:36 WBC (3.5-10.8) 10^3/ul RBC (4.0-5.4) 10^6/ul Hgb (12.0-16.0) g/dl Hct (35-47) % MCV (80-97) fL MCH (27-31) pg MCHC (31-36) g/dl RDW (10.5-15) % Plt Count (150-450) 10^3/ul MPV (7.4-10.4) um3 Neut % (Auto) (38-83) % Lymph % (Auto) (25-47) % [place] % (Auto) (1-9) % Eos % (Auto) (0-6) % Baso % (Auto) (0-2) % Absolute Neuts (auto) (1.5-7.7) 10^3/ul Absolute Lymphs (auto) (1.0-4.8) 10^3/ul Absolute Monos (auto) (0-0.8) 10^3/ul Absolute Eos (auto) (0-0.6) 10^3/ul Absolute Basos (auto) (0-0.2) 10^3/ul Absolute Nucleated RBC 10^3/ul Nucleated RBC % Sodium 137 (133-145) mmol/L Potassium 3.9 (3.5-5.0) mmol/L Chloride 102 (101-111) mmol/L Carbon Dioxide 26 (22-32) mmol/L Anion Gap 9 (2-11) mmol/L BUN 21 (6-24) mg/dL Creatinine 1.62 H (0.51-0.95) mg/dL Est GFR ( Amer) 40.8 (>60) Est GFR (Non-Af Amer) 31.7 (>60) BUN/Creatinine Ratio 13.0 (8-20) Glucose 144 H (70-100) mg/dL Calcium 10.1 (8.6-10.3) mg/dL Total Bilirubin 0.60 (0.2-1.0) mg/dL AST 31 (13-39) U/L ALT 28 (7-52) U/L Alkaline Phosphatase 70 (34-104) U/L C-Reactive Protein 1.21 (< 5.00) mg/L Total Protein 7.8 (6.4-8.9) g/dL Albumin 4.3 (3.2-5.2) g/dL Globulin 3.5 (2-4) g/dL Albumin/Globulin Ratio 1.2 (1-3) TSH 83.75 H (0.34-5.60) mcIU/mL Urine Color Urine Appearance Urine pH (5-9) Ur Specific [place] (1.010-1.030) Urine Protein (Negative) Urine Ketones (Negative) Urine Blood (Negative) Urine Nitrate (Negative) Urine Bilirubin (Negative) Urine Urobilinogen (Negative) Ur Leukocyte Esterase (Negative) Urine WBC (Auto) (Absent) Urine RBC (Auto) (Absent) Ur Squamous Epith Cells (Absent) Urine Bacteria (Absent) Hyaline Casts (Absent) Urine Glucose (Negative) Salicylates < 2.50 (<30) mg/dL Urine Opiates Screen (None Detect) Acetaminophen < 15 mcg/mL Ur Barbiturates Screen (None Detect) Ur Phencyclidine Scrn (None Detect) Ur Amphetamines Screen (None Detect) U Benzodiazepines Scrn (None Detect) Urine Cocaine Screen (None Detect) U Cannabinoids Screen (None Detect) Serum Alcohol < 10 (<10) mg/dL Result Diagrams: 09/03/16 13:36 09/03/16 13:36 Lab Statement: Any lab studies that have been ordered have been reviewed, and results considered in the medical decision making process. Course/Dx - Course Course Of Treatment: labs were obtained. due to urine results, TSH results patient was not medically cleared. Spoke with MHE and psych doc about patient along with Dr Mcarthur who agreed patient should be admitted for observation due to medication non compliance and for further psych evaluation. possibly delirious due to thyroid/urine. Not started on antibiotic at this time due to patient denying any symptoms and no nitrate or blood. will wait for urine culture unless new symptoms appear. - Differential Dx/Clinical Impression Differential Diagnosis/HQI/PQRI: Positive: Acute Psychosis, Anxiety, Depression , Other - delirium Provider Diagnosis: Delirium, Hypothyroid - Physician Notifications Discussed Care Of Patient With: Mental health, Psych and Dr Mcarthur Time Discussed With Above Provider: 16:20 Instructed by Provider To: Admit As Observation Patient Is Medically Stable For: Psych Evaluation Discharge - Discharge Plan Condition: Stable Disposition: ADMITTED TO [facility]
--- NOTE | 2016-09-04 02:01 | PN ---
Progress Note - Progress Note Date of Service: 09/04/16 Note: Ordered 1:1 at admission, but has been on floor for hours without as yet and has no behavioral issues. Admitted for delirium 2nd UTI. Will cancel.
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
[2016-09-04] MEDS: Heparin VIAL(*) 5000 UNITS/ML VIAL (FIVE THOUSAND) SUBCUT SCH ×2 (05:18→14:55)
[2016-09-04] MEDS ORDERED: Levothyroxine TAB* 125 MCG TAB PO SCH (06:00)
[2016-09-04 07:31] VITALS: BP 118/52
[2016-09-04] MEDS: Insulin LISPRO* 1 UNITS UNIT SUBCUT SCH ×2 (07:52→12:49)
[2016-09-04] MEDS: busPIRone TAB* 15 MG PO SCH ×2 (08:07→14:55)
[2016-09-04 08:11] LABS: BUN/Creatinine Ratio 14.7 (8-20); Calcium 8.8 mg/dL (8.6-10.3); EGFR African American 42.6 (>60); EGFR Non-African American 33.1 (>60); Potassium 4.1 mmol/L (3.5-5.0)
[2016-09-04] MEDS ORDERED: Venlafaxine EXT RELEASE CAP* 75 MG PO SCH (08:30)
[2016-09-04] MEDS ORDERED: Famotidine TAB* 20 MG PO SCH (09:00)
[2016-09-04] MEDS ORDERED: Metoprolol Succinate XL TAB* 25 MG PO SCH (09:00)
[2016-09-04] MEDS ORDERED: QUEtiapine TAB* 100 MG PO SCH (09:00)
--- NOTE | 2016-09-04 09:09 | PN ---
Subjective Date of Service: 09/04/16 Interval History: pt feels well. Wants to go home. During my conversation she is pleasant and oriented, able to tell me how she stayed with her family in 06/30, then flew back home. Objective Active Medications: Acetaminophen (Tylenol Tab*) 650 mg PO Q4H PRN PRN Reason: FEVER/PAIN Atorvastatin Calcium (Lipitor*) 20 mg PO BEDTIME [facility] Last Admin: 09/03/16 21:27 Dose: 20 mg Buspirone HCl (Buspar Tab *) 15 mg PO TID [facility] Last Admin: 09/04/16 08:07 Dose: 15 mg Dextrose (D50w Syringe 50 Ml*) 12.5 gm IV PUSH .FOR FS < 60 - SS PRN PRN Reason: FS < 60 Famotidine (Pepcid Tab*) 20 mg PO DAILY [facility] Last Admin: 09/04/16 08:07 Dose: 20 mg Fluticasone Propionate (Flonase Nasal [place] 50mcg*) 2 spray BOTH NARES DAILY PRN PRN Reason: Allergy Symptoms Heparin Sodium (Porcine) (Heparin Vial(*)) 5,000 units SUBCUT Q8HR [facility] Last Admin: 09/04/16 05:18 Dose: 5,000 units Sodium Chloride (Ns 0.9% 1000 Ml*) 1,000 mls @ 125 mls/hr IV PER RATE [facility] Last Admin: 09/03/16 19:51 Dose: 125 mls/hr Ceftriaxone Sodium 1,000 mg/ (Sodium Chloride) 50 mls @ 200 mls/hr IVPB Q24H [facility] Insulin Human Lispro (Humalog*) 0 units SUBCUT ACHS [facility] PRN Reason: Protocol Last Admin: 09/04/16 07:52 Dose: Not Given Levothyroxine Sodium (Synthroid Tab*) 125 mcg PO DAILY@0600 [facility] Last Admin: 09/04/16 05:18 Dose: 125 mcg Metoprolol Succinate (Toprol Xl Tab*) 25 mg PO DAILY [facility] Last Admin: 09/04/16 08:07 Dose: 25 mg Montelukast Sodium (Singulair Tab*) 10 mg PO BEDTIME PRN PRN Reason: Allergy Symptoms Nystatin (Nystatin Cream*) 1 applic TOPICAL BID PRN PRN Reason: ITCHING Last Admin: 09/04/16 05:23 Dose: 1 applic Pregabalin (Lyrica Cap(*)) 300 mg PO BEDTIME [facility] Last Admin: 09/03/16 21:27 Dose: 300 mg Quetiapine Fumarate (Seroquel Tab*) 100 mg PO DAILY [facility] Last Admin: 09/04/16 08:10 Dose: Not Given Venlafaxine HCl (Effexor Xr Cap*) 300 mg PO DAILY WITH MEAL [facility] Last Admin: 09/04/16 08:06 Dose: 300 mg Vital Signs 09/03/16 09/03/16 09/03/16 19:03 20:00 21:27 Temperature 98.8 F Pulse Rate 70 Respiratory 18 18 17 Rate Blood Pressure 133/56 (mmHg) O2 Sat by Pulse 96 Oximetry 09/03/16 09/03/16 09/04/16 23:13 23:27 03:35 Temperature 97.2 F 97.6 F Pulse Rate 70 66 Respiratory 20 17 16 Rate Blood Pressure 119/49 122/59 (mmHg) O2 Sat by Pulse 98 95 Oximetry 09/04/16 07:27 Temperature 96.9 F Pulse Rate 67 Respiratory 17 Rate Blood Pressure 118/52 (mmHg) O2 Sat by Pulse 100 Oximetry Oxygen Devices in Use Now: None Appearance: 66 yo f in nAD, aAOx3 Eyes: No Scleral Icterus, PERRLA Ears/Nose/Mouth/Throat: NL Teeth, Lips, Gums, Mucous Membranes Moist Neck: NL Appearance and Movements; NL JVP, Trachea Midline Respiratory: Symmetrical Chest Expansion and Respiratory Effort, Clear to Auscultation Cardiovascular: NL Sounds; No Murmurs; No JVD, No Edema Abdominal: NL Sounds; No Tenderness; No Distention, No Hepatosplenomegaly Lymphatic: No Cervical Adenopathy Extremities: No Edema, No Clubbing, Cyanosis Skin: No Rash or Ulcers, No Nodules or Sclerosis Neurological: Alert and Oriented x 3, NL Muscle Strength and Tone Result Diagrams: 09/03/16 13:36 09/04/16 07:48 Additional Lab and Data: Lab Results 09/03/16 09/03/16 09/03/16 Range/Units 13:21 13:21 13:36 WBC 5.4 (3.5-10.8) 10^3/ul RBC 4.61 (4.0-5.4) 10^6/ul Hgb 13.4 (12.0-16.0) g/dl Hct 41 (35-47) % MCV 89 (80-97) fL MCH 29 (27-31) pg MCHC 33 (31-36) g/dl RDW 16 H (10.5-15) % Plt Count 198 (150-450) 10^3/ul MPV 8 (7.4-10.4) um3 Neut % (Auto) 62.0 (38-83) % Lymph % (Auto) 29.8 (25-47) % [place] % (Auto) 6.1 (1-9) % Eos % (Auto) 1.4 (0-6) % Baso % (Auto) 0.7 (0-2) % Absolute Neuts (auto) 3.3 (1.5-7.7) 10^3/ul Absolute Lymphs (auto) 1.6 (1.0-4.8) 10^3/ul Absolute Monos (auto) 0.3 (0-0.8) 10^3/ul Absolute Eos (auto) 0.1 (0-0.6) 10^3/ul Absolute Basos (auto) 0 (0-0.2) 10^3/ul Absolute Nucleated RBC 0 10^3/ul Nucleated RBC % 0.1 Sodium (133-145) mmol/L Potassium (3.5-5.0) mmol/L Chloride (101-111) mmol/L Carbon Dioxide (22-32) mmol/L Anion Gap (2-11) mmol/L BUN (6-24) mg/dL Creatinine (0.51-0.95) mg/dL Est GFR ( Amer) (>60) Est GFR (Non-Af Amer) (>60) BUN/Creatinine Ratio (8-20) Glucose (70-100) mg/dL Calcium (8.6-10.3) mg/dL Total Bilirubin (0.2-1.0) mg/dL AST (13-39) U/L ALT (7-52) U/L Alkaline Phosphatase (34-104) U/L C-Reactive Protein (< 5.00) mg/L Total Protein (6.4-8.9) g/dL Albumin (3.2-5.2) g/dL Globulin (2-4) g/dL Albumin/Globulin Ratio (1-3) TSH (0.34-5.60) mcIU/mL Urine Color Yellow Urine Appearance Cloudy Urine pH 7.0 (5-9) Ur Specific [place] 1.011 (1.010-1.030) Urine Protein 2+(100 mg/dl) H (Negative) Urine Ketones Negative (Negative) Urine Blood Negative (Negative) Urine Nitrate Negative (Negative) Urine Bilirubin Negative (Negative) Urine Urobilinogen Negative (Negative) Ur Leukocyte Esterase 3+ H (Negative) Urine WBC (Auto) 3+(>20/hpf) H (Absent) Urine RBC (Auto) 2+(6-10/hpf) H (Absent) Ur Squamous Epith Cells Present H (Absent) Urine Bacteria Absent (Absent) Hyaline Casts Present H (Absent) Urine Glucose Negative (Negative) Salicylates (<30) mg/dL Urine Opiates Screen None detected (None Detect) Acetaminophen mcg/mL Ur Barbiturates Screen None detected (None Detect) Ur Phencyclidine Scrn None detected (None Detect) Ur Amphetamines Screen None detected (None Detect) U Benzodiazepines Scrn None detected (None Detect) Urine Cocaine Screen None detected (None Detect) U Cannabinoids Screen None detected (None Detect) Serum Alcohol (<10) mg/dL 09/03/16 Range/Units 13:36 WBC (3.5-10.8) 10^3/ul RBC (4.0-5.4) 10^6/ul Hgb (12.0-16.0) g/dl Hct (35-47) % MCV (80-97) fL MCH (27-31) pg MCHC (31-36) g/dl RDW (10.5-15) % Plt Count (150-450) 10^3/ul MPV (7.4-10.4) um3 Neut % (Auto) (38-83) % Lymph % (Auto) (25-47) % [place] % (Auto) (1-9) % Eos % (Auto) (0-6) % Baso % (Auto) (0-2) % Absolute Neuts (auto) (1.5-7.7) 10^3/ul Absolute Lymphs (auto) (1.0-4.8) 10^3/ul Absolute Monos (auto) (0-0.8) 10^3/ul Absolute Eos (auto) (0-0.6) 10^3/ul Absolute Basos (auto) (0-0.2) 10^3/ul Absolute Nucleated RBC 10^3/ul Nucleated RBC % Sodium 137 (133-145) mmol/L Potassium 3.9 (3.5-5.0) mmol/L Chloride 102 (101-111) mmol/L Carbon Dioxide 26 (22-32) mmol/L Anion Gap 9 (2-11) mmol/L BUN 21 (6-24) mg/dL Creatinine 1.62 H (0.51-0.95) mg/dL Est GFR ( Amer) 40.8 (>60) Est GFR (Non-Af Amer) 31.7 (>60) BUN/Creatinine Ratio 13.0 (8-20) Glucose 144 H (70-100) mg/dL Calcium 10.1 (8.6-10.3) mg/dL Total Bilirubin 0.60 (0.2-1.0) mg/dL AST 31 (13-39) U/L ALT 28 (7-52) U/L Alkaline Phosphatase 70 (34-104) U/L C-Reactive Protein 1.21 (< 5.00) mg/L Total Protein 7.8 (6.4-8.9) g/dL Albumin 4.3 (3.2-5.2) g/dL Globulin 3.5 (2-4) g/dL Albumin/Globulin Ratio 1.2 (1-3) TSH 83.75 H (0.34-5.60) mcIU/mL Urine Color Urine Appearance Urine pH (5-9) Ur Specific [place] (1.010-1.030) Urine Protein (Negative) Urine Ketones (Negative) Urine Blood (Negative) Urine Nitrate (Negative) Urine Bilirubin (Negative) Urine Urobilinogen (Negative) Ur Leukocyte Esterase (Negative) Urine WBC (Auto) (Absent) Urine RBC (Auto) (Absent) Ur Squamous Epith Cells (Absent) Urine Bacteria (Absent) Hyaline Casts (Absent) Urine Glucose (Negative) Salicylates < 2.50 (<30) mg/dL Urine Opiates Screen (None Detect) Acetaminophen < 15 mcg/mL Ur Barbiturates Screen (None Detect) Ur Phencyclidine Scrn (None Detect) Ur Amphetamines Screen (None Detect) U Benzodiazepines Scrn (None Detect) Urine Cocaine Screen (None Detect) U Cannabinoids Screen (None Detect) Serum Alcohol < 10 (<10) mg/dL Assess/Plan/Problems-Billing Assessment: 66 yo F with h/o depression, self injury and overdoses in the past, h/o DM, HTN, hypothyroid presented with delirium. stopped taking her synthroid 1 -2 weeks ago. - Patient Problems (1) Delirium due to another medical condition, acute, mixed level of activity Comment: It is multifactorial and due to possible UTI, and paranoia. I suspect pt gets paranoid and decides not to take her medications which causes more problems. today pt ios AA0x3. Awaiting psychiatry to clear pt (Dr. Murphy deemed pt incompetent yesterday)to go home (2) Depression Comment: cont Buspar , Effexor Pt refuses to take Seroquel. Awaiting psychiatry to weigh in (3) CKD stage 3 due to type 2 diabetes mellitus Comment: creat at baseline Due to creat at 1.5 pt should not be on metformin at discharge (4) Hypothyroidism Comment: TSH>80, pt with h/o noncompliance due to paranoia Pt agrees to take her Synthroid now CM to arrange social support and VNS at d/c (5) DM2 (diabetes mellitus, type 2) Comment: cont ISS cont glipizide at d/c D/c metformin (6) HTN (hypertension) Comment: controlled D/c Dyazide Cont lopressor (7) UTI (urinary tract infection) Comment: Possible, although soubt this cointributed to delirium(low CRP, no leukocytosis) Cont Ceftriaxone Awaiting cx results (8) DVT prophylaxis Comment: heparin sc
--- NOTE | 2016-09-04 14:07 | PN ---
Progress Note - Progress Note Date of Service: 09/04/16 Note: Saw Ms. Kwon to determine whether she has mental capacity to make decision for her discharge home. She was admitted yesterday because of noncomplience with her meds in the context of possible confusion. On todays evaluation she appears to be cleared up and there is no evidence of thoughts, perceptual or psychomotor disturbances or any impairment of cognition or memory. She verbalized the understanding of risks and benifits of proposesed and established treatments and her current discharge plans and consents to all. She has mental capacity to make a reasoned medical decision as evidenced by the above and psychiatrically cleared for discharged home when medically cleared. Thanks for the consult.
[2016-09-04] MEDS ORDERED: cefTRIAXone VIAL(*) 1,000 MG in NS 0.9% 50 ML* 50 ML IVPB SCH (17:30)
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
== END 2016-09-04 14:45 | disposition home or self-care (01) ==
LOC: ED 12:22 → MED 16:32
PROVIDERS: ADMIT Internal Medicine; ATTEND Internal Medicine
DX: R41.0 Disorientation, unspecified (principal); E86.0 Dehydration; E03.9 Hypothyroidism, unspecified; I12.9 Hypertensive chronic kidney disease with stage 1 through stage 4 chronic kidney disease, or unspecified chronic kidney disease; E11.22 Type 2 diabetes mellitus with diabetic chronic kidney disease; N18.3 Chronic kidney disease, stage 3 (moderate); F32.9 Major depressive disorder, single episode, unspecified; Z79.899 Other long term (current) drug therapy; Z88.2 Allergy status to sulfonamides; Z90.710 Acquired absence of both cervix and uterus
CPT/HCPCS: 36415; 80048; 80053; 80307; 80320; 80329; 81003; 81015; 84443; 85025; 86140; 87086; 96361; 96365; 96372; 99285; A9270-GY; G0378; G0480; J0696; J1644

== ENCOUNTER → 2016-10-13 18:28 | Emergency (ER) | payer MEDICARE, MEDICAID ==
[2016-10-13 19:32] LABS: Hematocrit 32 % (35-47); Hemoglobin 10.8 g/dl (12.0-16.0); Mean Corpuscular HGB Conc 33 g/dl (31-36); Mean Corpuscular Hemoglobin 29 pg (27-31); Mean Corpuscular Volume 88 fL (80-97); Mean Platelet Volume 8 um3 (7.4-10.4); Red Blood Count 3.67 10^6/ul (4.0-5.4); Red Cell Distribution Width 15 % (10.5-15); White Blood Count 7.2 10^3/ul (3.5-10.8)
[2016-10-13 19:49] LABS: ALT 29 U/L (7-52); AST 24 U/L (13-39); Albumin 3.8 g/dL (3.2-5.2); Alkaline Phosphatase 61 U/L (34-104); Anion Gap 8 mmol/L (2-11); BUN/Creatinine Ratio 26.2 (8-20); Blood Urea Nitrogen 39 mg/dL (6-24); CO2 Carbon Dioxide 27 mmol/L (22-32); Calcium 9.1 mg/dL (8.6-10.3); Chloride 98 mmol/L (101-111); EGFR African American 44.9 (>60); EGFR Non-African American 34.9 (>60); Globulin 2.9 g/dL (2-4); Glucose 133 mg/dL (70-100); Potassium 3.8 mmol/L (3.5-5.0); Sodium 133 mmol/L (133-145); Total Protein 6.7 g/dL (6.4-8.9)
[2016-10-13 20:20] LABS: TSH (Thyroid Stimulating Horm) 5.27 mcIU/mL (0.34-5.60)
--- NOTE | 2016-10-13 20:29 | ED ---
Rubens Cruz Alfonso, scribed for Bert Newton MD on 10/13/16 at 1927 . Psychiatric Complaint - HPI Summary HPI Summary: This patient is a 66 year old F BIBA 941 to [facility] with a chief complaint of SI since earlier today. She said I said something I wish I did not say and will not say again which were related to overdosing on OTC medication. The patient rates the pain 0/10 in severity. Symptoms aggravated by nothing. Symptoms alleviated by nothing. Patient reports stress. Medications reviewed. - History Of Current Complaint Chief Complaint: EDMentalHealth Time Seen by Provider: 10/13/16 19:19 Hx Obtained From: Patient Onset/Duration: Sudden Onset, Lasting Hours - earlier today, Still Present Timing: Constant Severity Initially: Moderate Severity Currently: Moderate Aggravating Factor(s): Nothing Alleviating Factor(s): Nothing Has Suicidal: Reports: Thoughts, With A Plan - Allergies/Home Medications Allergies/Adverse Reactions: Allergies Allergy/AdvReac Type Severity Reaction Status Date / Time Sulfa Antibiotics Allergy Hives Verified 07/03/16 13:20 PMH/Surg Hx/FS Hx/Imm Hx Endocrine/Hematology History: Reports: Hx Diabetes, Hx Thyroid Disease Cardiovascular History: Reports: Hx Hypercholesterolemia, Hx Hypertension Sensory History: Reports: Hx Contacts or Glasses Denies: Hx Hearing Aid Opthamlomology History: Reports: Hx Contacts or Glasses - Surgical History Surgery Procedure, Year, and Place: cholecystectomy, hysterectomy Infectious Disease History: Denies: Traveled Outside the [place] in Last 30 Days - Family History Known Family History: Positive: Hypertension, Diabetes - Social History Alcohol Use: None Hx Substance Use: No Substance Use Type: Reports: None Hx Tobacco Use: No Smoking Status (MU): Never Smoked Tobacco Review of Systems Constitutional: Negative Neurological: Other - SI and stress. All Other Systems Reviewed And Are Negative: Yes Physical Exam Triage Information Reviewed: Yes Vital Signs On Initial Exam: Initial Vitals Pulse Resp BP Pulse Ox 78 16 135/63 99 10/13/16 19:00 10/13/16 19:00 10/13/16 19:00 10/13/16 19:00 Vital Signs Reviewed: Yes Appearance: Positive: Well-Appearing, No Pain Distress Skin: Positive: Warm, Skin Color Reflects Adequate Perfusion, Dry Head/Face: Positive: Normal Head/Face Inspection Eyes: Positive: EOMI, DIANA ENT: Positive: Normal ENT inspection Neck: Positive: Supple, Nontender Respiratory/Lung Sounds: Positive: Clear to Auscultation, Breath Sounds Present Cardiovascular: Positive: RRR Abdomen Description: Positive: Nontender, Soft Bowel Sounds: Positive: Present Musculoskeletal: Positive: Normal, Strength/ROM Intact Neurological: Positive: Normal, Sensory/Motor Intact, Alert, Oriented to Person Place, Time Psychiatric: Positive: Affect/Mood Appropriate Diagnostics - Vital Signs Vital Signs Pulse Resp BP Pulse Ox 10/13/16 19:00 78 16 135/63 99 - Laboratory Lab Results: Lab Results 10/13/16 10/13/16 Range/Units 19:21 19:21 WBC 7.2 (3.5-10.8) 10^3/ul RBC 3.67 L (4.0-5.4) 10^6/ul Hgb 10.8 L (12.0-16.0) g/dl Hct 32 L (35-47) % MCV 88 (80-97) fL MCH 29 (27-31) pg MCHC 33 (31-36) g/dl RDW 15 (10.5-15) % Plt Count 209 (150-450) 10^3/ul MPV 8 (7.4-10.4) um3 Neut % (Auto) 66.4 (38-83) % Lymph % (Auto) 24.7 L (25-47) % [place] % (Auto) 6.4 (1-9) % Eos % (Auto) 2.3 (0-6) % Baso % (Auto) 0.2 (0-2) % Absolute Neuts (auto) 4.8 (1.5-7.7) 10^3/ul Absolute Lymphs (auto) 1.8 (1.0-4.8) 10^3/ul Absolute Monos (auto) 0.5 (0-0.8) 10^3/ul Absolute Eos (auto) 0.2 (0-0.6) 10^3/ul Absolute Basos (auto) 0 (0-0.2) 10^3/ul Absolute Nucleated RBC 0 10^3/ul Nucleated RBC % 0 Sodium 133 (133-145) mmol/L Potassium 3.8 (3.5-5.0) mmol/L Chloride 98 L (101-111) mmol/L Carbon Dioxide 27 (22-32) mmol/L Anion Gap 8 (2-11) mmol/L BUN 39 H (6-24) mg/dL Creatinine 1.49 H (0.51-0.95) mg/dL Est GFR ( Amer) 44.9 (>60) Est GFR (Non-Af Amer) 34.9 (>60) BUN/Creatinine Ratio 26.2 H (8-20) Glucose 133 H (70-100) mg/dL Calcium 9.1 (8.6-10.3) mg/dL Total Bilirubin 0.50 (0.2-1.0) mg/dL AST 24 (13-39) U/L ALT 29 (7-52) U/L Alkaline Phosphatase 61 (34-104) U/L Total Protein 6.7 (6.4-8.9) g/dL Albumin 3.8 (3.2-5.2) g/dL Globulin 2.9 (2-4) g/dL Albumin/Globulin Ratio 1.3 (1-3) TSH 5.27 (0.34-5.60) mcIU/mL Salicylates Pending Acetaminophen Pending Serum Alcohol Pending Result Diagrams: 10/13/16 19:21 10/13/16 19:21 Lab Statement: Any lab studies that have been ordered have been reviewed, and results considered in the medical decision making process. Course/Dx - Course Course Of Treatment: MHE PENDING AT SHIFT CHANGE. CRITICAL CARE TIME LESS THAN 30 MINUTES. - Differential Dx/Clinical Impression Provider Diagnosis: Mental health problem Discharge - Discharge Plan Condition: Stable Disposition: OTHER Discharge Disposition Comment: . Referrals: Adam Garcias MD [Primary Care Provider] - The documentation as recorded by the Rubens agustin Alfonso accurately reflects the service I personally performed and the decisions made by me, Bert Newton MD.
[2016-10-13 20:41] LABS: Acetaminophen < 15 mcg/mL; Alcohol < 10 mg/dL (<10); Salicylate < 2.50 mg/dL (<30)
[2016-10-13 22:46] LABS: Urine Bacteria Absent (Absent); Urine Bilirubin Negative (Negative); Urine Glucose Negative (Negative); Urine Nitrite Negative (Negative)
[2016-10-13 23:00] LABS: Benzodiazepine Urine Screen None Detected (None Detect)
[2016-10-14 02:15] VITALS: BP 140/63
== END ==
LOC: ED 18:28
DX: Z00.8 Encounter for other general examination (principal); E11.9 Type 2 diabetes mellitus without complications; Z86.39 Personal history of other endocrine, nutritional and metabolic disease
CPT/HCPCS: 36415; 80053; 80307; 80320; 80329; 81003; 81015; 84443; 85025; 87077; 87086; 99284; G0480

== ENCOUNTER 2017-08-18 10:39 | Inpatient (IN) | payer MEDICARE, MEDICAID ==
--- NOTE | 2017-08-18 11:21 | RAD ---
INDICATION: Altered mental status. COMPARISON: Comparison is made with a prior chest x-ray study from August 05, 2016. TECHNIQUE: A portable view of the chest was obtained. FINDINGS: Cardiac and mediastinal contours appear to be within normal limits. The lungs are underinflated and clear. No pleural effusion is seen. IMPRESSION: NO EVIDENCE FOR ACUTE DISEASE.
[2017-08-18 12:26] LABS: ABS Basophils 0 10^3/ul (0-0.2); ABS Eosinophils 0.2 10^3/ul (0-0.6); ABS Lymphocytes 1.4 10^3/ul (1.0-4.8); ABS Monocytes 0.4 10^3/ul (0-0.8); ABS Nucleated RBC 0 10^3/ul; Eosinophil % 2.7 % (0-6); Hematocrit 38 % (35-47); Hemoglobin 12.6 g/dl (12.0-16.0); Mean Corpuscular HGB Conc 34 g/dl (31-36); Mean Corpuscular Hemoglobin 29 pg (27-31); Mean Corpuscular Volume 86 fL (80-97); Mean Platelet Volume 7.6 um3 (7.4-10.4); Nucleated Red Blood Cells % 0.1; Platelet Count 227 10^3/ul (150-450); Red Blood Count 4.36 10^6/ul (4.00-5.40); Red Cell Distribution Width 14 % (10.5-15)
[2017-08-18 12:38] LABS: INR 1.01 (0.77-1.02)
[2017-08-18 12:49] LABS: EGFR Non-African American 36.8 (>60)
[2017-08-18 16:55] LABS: Urine Appearance Clear; Urine Blood Negative (Negative); Urine Color Yellow; Urine Ketones Negative (Negative); Urine Protein Negative (Negative); Urine Red Blood Cell Absent (Absent); Urine Specific Gravity 1.009 (1.010-1.030); Urine Urobilinogen Negative (Negative); Urine White Blood Cell 3+(>20/hpf) (Absent)
[2017-08-19] MEDS ORDERED: Famotidine TAB* 20 MG PO SCH (10:00)
[2017-08-19] MEDS ORDERED: Triamterene/HCTZ 37.5-25 MG* CAP PO SCH (10:00)
[2017-08-19] MEDS ORDERED: Metoprolol Succinate XL TAB* 25 MG PO SCH (10:00)
[2017-08-19] MEDS ORDERED: Levothyroxine TAB* 125 MCG TAB PO SCH (10:00)
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
[2017-08-19] MEDS ORDERED: Metoprolol Tartrate TAB* 25 MG ONE (12:01)
[2017-08-19] MEDS ORDERED: Famotidine TAB* 20 MG ONE (12:01)
[2017-08-19] MEDS ORDERED: Cephalexin CAP* 500 MG PO ONE (15:55)
[2017-08-19] MEDS ORDERED: Ondansetron INJ* 2 MG/ML VIAL IV PRN (16:41)
[2017-08-19] MEDS ORDERED: Dextrose 50% Syringe 50 ML* 25 GM/50 ML SYRINGE IV PUSH PRN (16:41)
[2017-08-19] MEDS ORDERED: Acetaminophen TAB* 325 MG PO PRN (16:41)
[2017-08-19] MEDS ORDERED: glipiZIDE TAB* 5 MG PO SCH (17:00)
[2017-08-19 17:01] LABS: ABS Basophils 0 10^3/ul (0-0.2); ABS Eosinophils 0.2 10^3/ul (0-0.6); ABS Lymphocytes 1.3 10^3/ul (1.0-4.8); ABS Monocytes 0.3 10^3/ul (0-0.8); ABS Neutrophils 4.2 10^3/ul (1.5-7.7); ABS Nucleated RBC 0 10^3/ul; Eosinophil % 2.9 % (0-6); Hematocrit 37 % (35-47); Hemoglobin 12.6 g/dl (12.0-16.0); Mean Corpuscular HGB Conc 34 g/dl (31-36); Mean Corpuscular Hemoglobin 30 pg (27-31); Mean Corpuscular Volume 86 fL (80-97); Mean Platelet Volume 7.8 um3 (7.4-10.4); Nucleated Red Blood Cells % 0; Platelet Count 261 10^3/ul (150-450); Red Blood Count 4.26 10^6/ul (4.00-5.40); Red Cell Distribution Width 14 % (10.5-15); White Blood Count 6.1 10^3/ul (3.5-10.8)
[2017-08-19 17:07] LABS: INR 1.01 (0.77-1.02)
[2017-08-19 17:19] LABS: EGFR Non-African American 42.2 (>60)
[2017-08-19] MEDS: busPIRone TAB* 15 MG PO SCH (21:15)
[2017-08-19] MEDS: Pregabalin CAP(*) 25 MG PO SCH (21:15)
[2017-08-19] MEDS: Atorvastatin* 20 MG TAB PO SCH (21:15)
[2017-08-19] MEDS: Famotidine TAB* 20 MG PO SCH (21:16)
[2017-08-19] MEDS: Heparin VIAL(*) 5000 UNITS/ML VIAL (FIVE THOUSAND) SUBCUT SCH (21:19)
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
[2017-08-19] MEDS: cefTRIAXone(*) 1 GM in NS 0.9% 50 ML* 50 ML IVPB SCH (23:01)
[2017-08-20] MEDS: Levothyroxine TAB* 125 MCG TAB PO SCH (06:04)
[2017-08-20] MEDS: Heparin VIAL(*) 5000 UNITS/ML VIAL (FIVE THOUSAND) SUBCUT SCH ×3 (06:56→22:01)
[2017-08-20 07:25] LABS: ABS Basophils 0 10^3/ul (0-0.2); ABS Eosinophils 0.2 10^3/ul (0-0.6); ABS Lymphocytes 1.9 10^3/ul (1.0-4.8); ABS Monocytes 0.3 10^3/ul (0-0.8); ABS Neutrophils 2.9 10^3/ul (1.5-7.7); ABS Nucleated RBC 0 10^3/ul; Eosinophil % 2.9 % (0-6); Hematocrit 33 % (35-47); Hemoglobin 11.4 g/dl (12.0-16.0); Lymphocyte % 35.6 % (25-47); Mean Corpuscular HGB Conc 34 g/dl (31-36); Mean Corpuscular Hemoglobin 30 pg (27-31); Mean Corpuscular Volume 86 fL (80-97); Mean Platelet Volume 7.7 um3 (7.4-10.4); Nucleated Red Blood Cells % 0; Platelet Count 203 10^3/ul (150-450); Red Blood Count 3.87 10^6/ul (4.00-5.40); Red Cell Distribution Width 14 % (10.5-15); White Blood Count 5.3 10^3/ul (3.5-10.8)
[2017-08-20 07:41] LABS: EGFR Non-African American 42.6 (>60)
[2017-08-20 07:42] LABS: INR 0.99 (0.77-1.02)
[2017-08-20] MEDS: Venlafaxine EXT RELEASE CAP* 75 MG PO SCH (09:01)
[2017-08-20] MEDS: busPIRone TAB* 15 MG PO SCH ×2 (09:01→21:15)
[2017-08-20] MEDS: Triamterene/HCTZ 37.5-25 MG* CAP PO SCH (09:02)
[2017-08-20] MEDS: Metoprolol Succinate XL TAB* 25 MG PO SCH (09:02)
[2017-08-20] MEDS: Famotidine TAB* 20 MG PO SCH ×2 (09:03→21:14)
[2017-08-20] MEDS: Insulin LISPRO* 1 UNITS UNIT SUBCUT SCH ×3 (09:07→17:20)
--- NOTE | 2017-08-20 11:18 | PN ---
Subjective Date of Service: 08/20/17 Interval History: Ms. Kwon is a 67-year-old female patient, previously from [place], who carries a history of depression, self-injurious behavior, overdose attempt, history of CKD, DM, hypothyroidism, HTN, and hyperlipidemia. She was sent for evaluation from [place] due to hallucinations and verbal aggressions. evaluation noted that hallucinations have been ongoing. During her time in the flex unit, she was noted to have a UTI. Today, she is lying quietly in her room. She is very sociable and polite. She knows her name, where she is, the month of August. She denies any desire to harm herself. She has no acute complaints or concerns at this time; states she slept very well after turning on the "quiet channel" and took a shower this morning. Reports she ate a good breakfast, denies n/v/d, and is looking forward to lunch. Family History: Unchanged from Admission Social History: Unchanged from Admission Past Medical History: Unchanged from Admission Objective Active Medications: Acetaminophen (Tylenol Tab*) 650 mg PO Q4H PRN PRN Reason: FEVER/PAIN Atorvastatin Calcium (Lipitor*) 20 mg PO BEDTIME [facility] Last Admin: 08/19/17 21:15 Dose: 20 mg Buspirone HCl (Buspar Tab *) 15 mg PO BID [facility] Last Admin: 08/20/17 09:01 Dose: 15 mg Dextrose (D50w Syringe 50 Ml*) 12.5 gm IV PUSH .FOR FS < 60 - SS PRN PRN Reason: FS < 60 Famotidine (Pepcid Tab*) 20 mg PO BID [facility] Last Admin: 08/20/17 09:03 Dose: 20 mg Heparin Sodium (Porcine) (Heparin Vial(*)) 5,000 units SUBCUT Q8HR [facility] Last Admin: 08/20/17 06:56 Dose: Not Given Ceftriaxone Sodium 1 gm/ (Sodium Chloride) 50 mls @ 200 mls/hr IVPB Q24H [facility] Last Admin: 08/19/17 23:01 Dose: 200 mls/hr Insulin Human Lispro (Humalog*) 0 units SUBCUT AC [facility]; Protocol Last Admin: 08/20/17 09:07 Dose: 3 units Levothyroxine Sodium (Synthroid Tab*) 125 mcg PO 0600 [facility] Last Admin: 08/20/17 06:04 Dose: 125 mcg Metoprolol Succinate (Toprol Xl Tab*) 25 mg PO DAILY [facility] Last Admin: 08/20/17 09:02 Dose: 25 mg Ondansetron HCl (Zofran Inj*) 4 mg IV Q6H PRN PRN Reason: NAUSEA Pregabalin (Lyrica Cap(*)) 75 mg PO BEDTIME [facility] Last Admin: 08/19/17 21:15 Dose: 75 mg Triamterene/HCTZ (Dyazide Cap*) 2 cap PO DAILY [facility] Last Admin: 08/20/17 09:02 Dose: 2 cap Venlafaxine HCl (Effexor Xr Cap*) 300 mg PO DAILY [facility] Last Admin: 08/20/17 09:01 Dose: 300 mg Vital Signs - 8 hr 08/20/17 08/20/17 04:54 08:00 Temperature 98.3 F 98.0 F Pulse Rate 74 79 Respiratory 16 16 Rate Blood Pressure 134/63 138/54 (mmHg) O2 Sat by Pulse 96 97 Oximetry Oxygen Devices in Use Now: None Appearance: Female patient, lying in bed, holding stuffed cat, in NAD Eyes: No Scleral Icterus, PERRLA Ears/Nose/Mouth/Throat: Clear Oropharnyx, Mucous Membranes Moist Neck: NL Appearance and Movements; NL JVP Respiratory: Symmetrical Chest Expansion and Respiratory Effort, Clear to Auscultation Cardiovascular: NL Sounds; No Murmurs; No JVD, RRR Abdominal: NL Sounds; No Tenderness; No Distention Extremities: No Clubbing, Cyanosis, - - 1-2+ BLE edema Neurological: Alert and Oriented x 3, NL Muscle Strength and Tone Lines/Tubes/Other Access: Clean, Dry and Intact Peripheral IV Nutrition: Taking PO's Result Diagrams: 08/20/17 06:47 08/20/17 06:52 Microbiology and Other Data: Microbiology 08/18/17 16:20 Urine Culture - Final Urine 08/18/17 11:46 Aerobic Blood Culture - Preliminary Blood Venous No Growth Day 1 Anaerobic Blood Culture - Preliminary No Growth Day 1 08/18/17 11:46 Aerobic Blood Culture - Preliminary Blood Venous No Growth Day 1 Anaerobic Blood Culture - Preliminary No Growth Day 1 Assess/Plan/Problems-Billing Assessment: Ms. Kwon is a 67-year-old female patient with a PMH significant for depression, self-injurious behavior, overdose attempt, history of CKD, DM, hypothyroidism, HTN, and hyperlipidemia. She was initially sent for evaluation of hallucinations and aggressive behaviors and was found to also have a UTI. - Patient Problems (1) UTI (urinary tract infection) Current Visit: No Status: Acute Comment: UA with positive leukocyte esterase, culture pending Continue ceftriaxone (2) Altered mental status Code(s): R41.82 - ALTERED MENTAL STATUS, UNSPECIFIED Comment: Acute delirium, appears secondary to UTI Patient appears to be back at baseline, no noted hallucinations or aggressive behaviors Does have a history of dementia, ? behaviors vs acute infection Continue to monitor Supportive care (3) DM2 (diabetes mellitus, type 2) Current Visit: No Status: Chronic Comment: With acceptable control Continue FSBG with sliding scale Continue glipizide and pioglitazone at discharge Continue Lyrica for peripheral neuropathy (4) HTN (hypertension) Code(s): I10 - ESSENTIAL (PRIMARY) HYPERTENSION Comment: With acceptable control Continue metoprolol and Dyazide (also used for chronic peripheral edema) (5) Hypothyroidism Code(s): E03.9 - HYPOTHYROIDISM, UNSPECIFIED Comment: Continue current dose of levothyroxine Last TSH was in September 2016, will add on to AM labs (6) CKD stage 3 due to type 2 diabetes mellitus Code(s): E11.22 - TYPE 2 DIABETES MELLITUS W DIABETIC CHRONIC KIDNEY DISEASE; N18.3 - CHRONIC KIDNEY DISEASE, STAGE 3 (MODERATE) Comment: Creatinine within baseline (slightly improved from baseline) (7) Depression Code(s): F32.9 - MAJOR DEPRESSIVE DISORDER, SINGLE EPISODE, UNSPECIFIED Comment: With anxiety Per notes, patient does not need psychiatric admission Continue current regimen of venlafaxine and buspirone (8) DVT prophylaxis Comment: SQ heparin Will add TEDS, given chronic BLE edema Status and Disposition: Inpatient admission. Will need re-evaluation by [facility] prior to discharge in order to determine if patient is safe to return. D/c likely Tuesday or Tuesday. Attending: Prakash Yusuf
[2017-08-20] MEDS ORDERED: Pioglitazone TAB* 30 MG PO SCH (17:00)
[2017-08-20] MEDS: cefTRIAXone(*) 1 GM in NS 0.9% 50 ML* 50 ML IVPB SCH (18:21)
[2017-08-20] MEDS: Pregabalin CAP(*) 25 MG PO SCH (21:14)
[2017-08-20] MEDS: Atorvastatin* 20 MG TAB PO SCH (21:14)
[2017-08-21] MEDS: Heparin VIAL(*) 5000 UNITS/ML VIAL (FIVE THOUSAND) SUBCUT SCH ×3 (06:16→21:30)
[2017-08-21] MEDS: Levothyroxine TAB* 125 MCG TAB PO SCH (06:45)
--- NOTE | 2017-08-21 08:22 | PN ---
Subjective Date of Service: 08/21/17 Interval History: Patient seen and examined at bedside. Denies fever, chills, shortness of breath , chest discomfort, urinary symptoms, N/V/D. Pt states that she is feeling much better than when she came in. Family History: Unchanged from Admission Social History: Unchanged from Admission Past Medical History: Unchanged from Admission Objective Active Medications: Acetaminophen (Tylenol Tab*) 650 mg PO Q4H PRN Reason: FEVER/PAIN Atorvastatin Calcium (Lipitor*) 20 mg PO BEDTIME [facility] Buspirone HCl (Buspar Tab *) 15 mg PO BID [facility] Dextrose (D50w Syringe 50 Ml*) 12.5 gm IV PUSH .FOR FS < 60 - SS PRN Reason: FS < 60 Famotidine (Pepcid Tab*) 20 mg PO BID [facility] Heparin Sodium (Porcine) (Heparin Vial(*)) 5,000 units SUBCUT Q8HR [facility] Ceftriaxone Sodium 1 gm/ (Sodium Chloride) 50 mls @ 200 mls/hr IVPB Q24H [facility] Insulin Human Lispro (Humalog*) 0 units SUBCUT AC [facility]; Protocol Levothyroxine Sodium (Synthroid Tab*) 125 mcg PO 0600 [facility] Metoprolol Succinate (Toprol Xl Tab*) 25 mg PO DAILY [facility] Ondansetron HCl (Zofran Inj*) 4 mg IV Q6H PRN Reason: NAUSEA Pregabalin (Lyrica Cap(*)) 75 mg PO BEDTIME [facility] Triamterene/HCTZ (Dyazide Cap*) 2 cap PO DAILY [facility] Venlafaxine HCl (Effexor Xr Cap*) 300 mg PO DAILY [facility] Vital Signs - 8 hr 08/21/17 08/21/17 03:11 07:37 Temperature 98.0 F 97.7 F Pulse Rate 77 77 Respiratory 18 16 Rate Blood Pressure 129/52 134/57 (mmHg) O2 Sat by Pulse 95 96 Oximetry Oxygen Devices in Use Now: None Appearance: NAD, laying in bed Ears/Nose/Mouth/Throat: Mucous Membranes Moist Respiratory: Symmetrical Chest Expansion and Respiratory Effort, Clear to Auscultation Cardiovascular: NL Sounds; No Murmurs; No JVD, RRR Abdominal: NL Sounds; No Tenderness; No Distention Extremities: No Edema Skin: No Rash or Ulcers Neurological: Alert and Oriented x 3, NL Muscle Strength and Tone Lines/Tubes/Other Access: Clean, Dry and Intact Peripheral IV - site benign Nutrition: Taking PO's Result Diagrams: 08/20/17 06:47 08/20/17 06:52 Microbiology and Other Data: Microbiology 08/18/17 16:20 Urine Culture - Final Urine 08/18/17 11:46 Aerobic Blood Culture - Preliminary Blood Venous No Growth Day 1 Anaerobic Blood Culture - Preliminary No Growth Day 1 08/18/17 11:46 Aerobic Blood Culture - Preliminary Blood Venous No Growth Day 1 Anaerobic Blood Culture - Preliminary No Growth Day 1 Assess/Plan/Problems-Billing Assessment: Ms. Kwon is a 67-year-old female patient with a PMH significant for depression, self-injurious behavior, overdose attempt, history of CKD, DM, hypothyroidism, HTN, and hyperlipidemia. She was initially sent for evaluation of hallucinations and aggressive behaviors and was found to also have a UTI. - Patient Problems (1) UTI (urinary tract infection) Comment: - Afebrile and no leukocytosis - UA with positive leukocyte esterase - Urine culture with no growth - Ceftriaxone day 04/16, discontinue (2) Altered mental status Code(s): R41.82 - ALTERED MENTAL STATUS, UNSPECIFIED SNOMED Code(s): 301567401 Comment: - Resolved - Acute delirium, suspected to be secondary to UTI but urine culture with no growth - Patient appears to be back at baseline, no noted hallucinations or aggressive behaviors - History of dementia, ? behaviors vs acute infection (3) DM2 (diabetes mellitus, type 2) Comment: - With associated peripheral neuropathy - Glucose 150-160's - Continue Lispro SS and Lyrica (for peripheral neuropathy) - Resume glipizide and pioglitazone at discharge (4) HTN (hypertension) Code(s): I10 - ESSENTIAL (PRIMARY) HYPERTENSION SNOMED Code(s): 99176565 Comment: - Normotensive, SBP 120-140's - Continue metoprolol and Dyazide (also used for chronic peripheral edema) (5) CKD stage 3 due to type 2 diabetes mellitus Code(s): E11.22 - TYPE 2 DIABETES MELLITUS W DIABETIC CHRONIC KIDNEY DISEASE; N18.3 - CHRONIC KIDNEY DISEASE, STAGE 3 (MODERATE) SNOMED Code(s): 666076055637 Comment: - Creatinine within baseline (slightly improved from baseline) (6) Depression Code(s): F32.9 - MAJOR DEPRESSIVE DISORDER, SINGLE EPISODE, UNSPECIFIED SNOMED Code(s): 73148723 Comment: - With anxiety - Per notes, patient does not need psychiatric admission - Continue venlafaxine and buspirone (7) Hypothyroidism Code(s): E03.9 - HYPOTHYROIDISM, UNSPECIFIED SNOMED Code(s): 33797287 Comment: - TSH 0.20, Free T4 1.13 - Continue current dose of levothyroxine (8) DVT prophylaxis Code(s): DCS0013 - SNOMED Code(s): 803907188 Comment: - SQ heparin and TEDS, given chronic BLE edema (9) Full code status Code(s): Z78.9 - OTHER SPECIFIED HEALTH STATUS SNOMED Code(s): 605696086 Status and Disposition: Inpatient admission. Will need re-evaluation by [facility] prior to discharge in order to determine if patient is safe to return. D/c likely Tuesday or Tuesday.
[2017-08-21] MEDS: Insulin LISPRO* 1 UNITS UNIT SUBCUT SCH ×3 (09:01→17:12)
[2017-08-21] MEDS: Famotidine TAB* 20 MG PO SCH ×2 (09:02→20:34)
[2017-08-21] MEDS: busPIRone TAB* 15 MG PO SCH ×2 (09:02→20:34)
[2017-08-21] MEDS: Venlafaxine EXT RELEASE CAP* 75 MG PO SCH (09:02)
[2017-08-21] MEDS: Triamterene/HCTZ 37.5-25 MG* CAP PO SCH (09:02)
[2017-08-21] MEDS: Metoprolol Succinate XL TAB* 25 MG PO SCH (09:02)
[2017-08-21] MEDS: cefTRIAXone(*) 1 GM in NS 0.9% 50 ML* 50 ML IVPB SCH (17:12)
[2017-08-21] MEDS: Atorvastatin* 20 MG TAB PO SCH (20:34)
[2017-08-21] MEDS: Pregabalin CAP(*) 25 MG PO SCH (20:34)
[2017-08-22 05:06] LABS: ABS Basophils 0 10^3/ul (0-0.2); ABS Eosinophils 0.2 10^3/ul (0-0.6); ABS Lymphocytes 2.2 10^3/ul (1.0-4.8); ABS Monocytes 0.4 10^3/ul (0-0.8); ABS Neutrophils 2.6 10^3/ul (1.5-7.7); ABS Nucleated RBC 0 10^3/ul; Eosinophil % 3.7 % (0-6); Hematocrit 34 % (35-47); Hemoglobin 11.4 g/dl (12.0-16.0); Lymphocyte % 41.5 % (25-47); Mean Corpuscular HGB Conc 34 g/dl (31-36); Mean Corpuscular Hemoglobin 29 pg (27-31); Mean Corpuscular Volume 87 fL (80-97); Mean Platelet Volume 7.9 um3 (7.4-10.4); Nucleated Red Blood Cells % 0.1; Platelet Count 205 10^3/ul (150-450); Red Blood Count 3.91 10^6/ul (4.00-5.40); Red Cell Distribution Width 14 % (10.5-15); White Blood Count 5.3 10^3/ul (3.5-10.8)
[2017-08-22] MEDS: Heparin VIAL(*) 5000 UNITS/ML VIAL (FIVE THOUSAND) SUBCUT SCH ×3 (05:45→21:24)
[2017-08-22] MEDS: Levothyroxine TAB* 100 MCG TAB PO SCH (05:46)
[2017-08-22] MEDS: Metoprolol Succinate XL TAB* 25 MG PO SCH (08:25)
[2017-08-22] MEDS: Insulin LISPRO* 1 UNITS UNIT SUBCUT SCH ×3 (08:26→17:16)
[2017-08-22] MEDS: busPIRone TAB* 15 MG PO SCH ×2 (08:29→21:24)
[2017-08-22] MEDS: Triamterene/HCTZ 37.5-25 MG* CAP PO SCH (08:29)
[2017-08-22] MEDS: Venlafaxine EXT RELEASE CAP* 75 MG PO SCH (08:30)
[2017-08-22] MEDS: Famotidine TAB* 20 MG PO SCH ×2 (09:19→21:24)
--- NOTE | 2017-08-22 10:31 | PN ---
Subjective Date of Service: 08/22/17 Interval History: Patient seen and examined at bedside. Denies fever, chills, shortness of breath , chest discomfort, N/V/D. Pt states that she is feeling well today. Family History: Unchanged from Admission Social History: Unchanged from Admission Past Medical History: Unchanged from Admission Objective Active Medications: Acetaminophen (Tylenol Tab*) 650 mg PO Q4H PRN Reason: FEVER/PAIN Atorvastatin Calcium (Lipitor*) 20 mg PO BEDTIME [facility] Buspirone HCl (Buspar Tab *) 15 mg PO BID [facility] Dextrose (D50w Syringe 50 Ml*) 12.5 gm IV PUSH .FOR FS < 60 - SS PRN Reason: FS < 60 Famotidine (Pepcid Tab*) 20 mg PO BID [facility] Heparin Sodium (Porcine) (Heparin Vial(*)) 5,000 units SUBCUT Q8HR [facility] Insulin Human Lispro (Humalog*) 0 units SUBCUT AC [facility]; Protocol Levothyroxine Sodium (Synthroid Tab*) 100 mcg PO DAILY@0600 [facility] Metoprolol Succinate (Toprol Xl Tab*) 25 mg PO DAILY [facility] Ondansetron HCl (Zofran Inj*) 4 mg IV Q6H PRN Reason: NAUSEA Pregabalin (Lyrica Cap(*)) 75 mg PO BEDTIME [facility] Triamterene/HCTZ (Dyazide Cap*) 2 cap PO DAILY [facility] Venlafaxine HCl (Effexor Xr Cap*) 300 mg PO DAILY [facility] Vital Signs - 8 hr 08/22/17 08/22/17 08/22/17 03:25 07:23 08:00 Temperature 98.4 F 97.9 F Pulse Rate 74 73 Respiratory 16 18 17 Rate Blood Pressure 151/71 127/61 (mmHg) O2 Sat by Pulse 99 96 Oximetry 08/22/17 10:26 Temperature Pulse Rate Respiratory 16 Rate Blood Pressure (mmHg) O2 Sat by Pulse 97 Oximetry Oxygen Devices in Use Now: None Appearance: NAD, standing in room Ears/Nose/Mouth/Throat: Mucous Membranes Moist Respiratory: Symmetrical Chest Expansion and Respiratory Effort, Clear to Auscultation Cardiovascular: NL Sounds; No Murmurs; No JVD, RRR Abdominal: NL Sounds; No Tenderness; No Distention Extremities: No Edema Skin: No Rash or Ulcers Neurological: Alert and Oriented x 3, NL Muscle Strength and Tone Lines/Tubes/Other Access: Clean, Dry and Intact Peripheral IV - site benign Nutrition: Taking PO's Result Diagrams: 08/22/17 04:21 08/20/17 06:52 Microbiology and Other Data: Microbiology 08/18/17 16:20 Urine Culture - Final Urine 08/18/17 11:46 Aerobic Blood Culture - Preliminary Blood Venous No Growth Day 1 Anaerobic Blood Culture - Preliminary No Growth Day 1 08/18/17 11:46 Aerobic Blood Culture - Preliminary Blood Venous No Growth Day 1 Anaerobic Blood Culture - Preliminary No Growth Day 1 Assess/Plan/Problems-Billing Assessment: Ms. Kwon is a 67-year-old female patient with a PMH significant for depression, self-injurious behavior, overdose attempt, history of CKD, DM, hypothyroidism, HTN, and hyperlipidemia. She was initially sent for evaluation of hallucinations and aggressive behaviors and was found to also have a UTI. - Patient Problems (1) UTI (urinary tract infection) Comment: - Afebrile and no leukocytosis - UA with positive leukocyte esterase - Urine culture with no growth - Received 3 doses of Ceftriaxone (2) Altered mental status Code(s): R41.82 - ALTERED MENTAL STATUS, UNSPECIFIED SNOMED Code(s): 023881697 Comment: - Resolved - Acute delirium, suspected to be secondary to UTI but urine culture with no growth - Patient appears to be back at baseline, no noted hallucinations or aggressive behaviors - History of dementia, ? behaviors vs acute infection (3) DM2 (diabetes mellitus, type 2) Comment: - With associated peripheral neuropathy - Glucose 140-160's - Continue Lispro SS and Lyrica (for peripheral neuropathy) - Resume glipizide and pioglitazone at discharge (4) HTN (hypertension) Code(s): I10 - ESSENTIAL (PRIMARY) HYPERTENSION SNOMED Code(s): 07784285 Comment: - Normotensive, SBP 120-150's - Continue metoprolol and Dyazide (also used for chronic peripheral edema) (5) CKD stage 3 due to type 2 diabetes mellitus Code(s): E11.22 - TYPE 2 DIABETES MELLITUS W DIABETIC CHRONIC KIDNEY DISEASE; N18.3 - CHRONIC KIDNEY DISEASE, STAGE 3 (MODERATE) SNOMED Code(s): 600452418825 Comment: - Creatinine within baseline (slightly improved from baseline) (6) Depression Code(s): F32.9 - MAJOR DEPRESSIVE DISORDER, SINGLE EPISODE, UNSPECIFIED SNOMED Code(s): 82825212 Comment: - With anxiety - Per notes, patient does not need psychiatric admission - Continue venlafaxine and buspirone (7) Hypothyroidism Code(s): E03.9 - HYPOTHYROIDISM, UNSPECIFIED SNOMED Code(s): 72548431 Comment: - TSH 0.20, Free T4 1.13 - Continue levothyroxine (decreased dose) - Will need follow-up labs in 6 weeks (8) DVT prophylaxis Code(s): RBR7301 - SNOMED Code(s): 029697247 Comment: - SQ heparin and TEDS, given chronic BLE edema (9) Full code status Code(s): Z78.9 - OTHER SPECIFIED HEALTH STATUS SNOMED Code(s): 337017183 Status and Disposition: Inpatient. Patient is medically stable for discharge home today. Will need re- evaluation by [facility] prior to return there in order to determine if patient is safe to return.
[2017-08-22] MEDS: Pregabalin CAP(*) 25 MG PO SCH (21:23)
[2017-08-22] MEDS: Atorvastatin* 20 MG TAB PO SCH (21:24)
[2017-08-23] MEDS: Heparin VIAL(*) 5000 UNITS/ML VIAL (FIVE THOUSAND) SUBCUT SCH ×3 (05:39→21:32)
[2017-08-23] MEDS: Levothyroxine TAB* 100 MCG TAB PO SCH (05:40)
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
[2017-08-23] MEDS: Insulin LISPRO* 1 UNITS UNIT SUBCUT SCH ×3 (08:14→17:14)
[2017-08-23] MEDS: Metoprolol Succinate XL TAB* 25 MG PO SCH (08:16)
[2017-08-23] MEDS: busPIRone TAB* 15 MG PO SCH ×2 (08:16→20:17)
[2017-08-23] MEDS: Famotidine TAB* 20 MG PO SCH ×2 (08:16→20:17)
[2017-08-23] MEDS: Venlafaxine EXT RELEASE CAP* 75 MG PO SCH (08:17)
[2017-08-23] MEDS: Triamterene/HCTZ 37.5-25 MG* CAP PO SCH (08:17)
--- NOTE | 2017-08-23 14:19 | PN ---
Subjective Date of Service: 08/23/17 Interval History: pt reports she feels good today and hopes she can go home soon. She reports she feels back to herself. No fever/chills. Good appetite. Is doing a crossword puzzle today to keep herself busy. Family History: Unchanged from Admission Social History: Unchanged from Admission Past Medical History: Unchanged from Admission Objective Active Medications: Acetaminophen (Tylenol Tab*) 650 mg PO Q4H PRN PRN Reason: FEVER/PAIN Atorvastatin Calcium (Lipitor*) 20 mg PO BEDTIME [facility] Last Admin: 08/22/17 21:24 Dose: 20 mg Buspirone HCl (Buspar Tab *) 15 mg PO BID [facility] Last Admin: 08/23/17 08:16 Dose: 15 mg Dextrose (D50w Syringe 50 Ml*) 12.5 gm IV PUSH .FOR FS < 60 - SS PRN PRN Reason: FS < 60 Famotidine (Pepcid Tab*) 20 mg PO BID [facility] Last Admin: 08/23/17 08:16 Dose: 20 mg Heparin Sodium (Porcine) (Heparin Vial(*)) 5,000 units SUBCUT Q8HR [facility] Last Admin: 08/23/17 05:39 Dose: 5,000 units Insulin Human Lispro (Humalog*) 0 units SUBCUT AC [facility]; Protocol Last Admin: 08/23/17 13:01 Dose: 2 units Levothyroxine Sodium (Synthroid Tab*) 100 mcg PO DAILY@0600 [facility] Last Admin: 08/23/17 05:40 Dose: 100 mcg Metoprolol Succinate (Toprol Xl Tab*) 25 mg PO DAILY [facility] Last Admin: 08/23/17 08:16 Dose: 25 mg Ondansetron HCl (Zofran Inj*) 4 mg IV Q6H PRN PRN Reason: NAUSEA Pregabalin (Lyrica Cap(*)) 75 mg PO BEDTIME [facility] Last Admin: 08/22/17 21:23 Dose: 75 mg Triamterene/HCTZ (Dyazide Cap*) 2 cap PO DAILY [facility] Last Admin: 08/23/17 08:17 Dose: 2 cap Venlafaxine HCl (Effexor Xr Cap*) 300 mg PO DAILY [facility] Last Admin: 08/23/17 08:17 Dose: 300 mg Vital Signs - 8 hr 08/23/17 08/23/1718 07:26 08:00 09:24 Temperature 97.8 F Pulse Rate 73 Respiratory 20 20 Rate Blood Pressure 132/61 (mmHg) O2 Sat by Pulse 98 97 Oximetry 08/23/17 11:30 Temperature 97.4 F Pulse Rate 72 Respiratory 18 Rate Blood Pressure 121/63 (mmHg) O2 Sat by Pulse 94 Oximetry Oxygen Devices in Use Now: None Appearance: 67 yo female laying in bed A+O x3 in NAD Eyes: No Scleral Icterus, PERRLA Ears/Nose/Mouth/Throat: NL Teeth, Lips, Gums, Mucous Membranes Moist Respiratory: Symmetrical Chest Expansion and Respiratory Effort, Clear to Auscultation Cardiovascular: NL Sounds; No Murmurs; No JVD, RRR Abdominal: - - obese Neurological: Alert and Oriented x 3, NL Sensation, NL Muscle Strength and Tone Lines/Tubes/Other Access: Clean, Dry and Intact Peripheral IV Nutrition: Taking PO's Result Diagrams: 08/22/17 04:21 08/20/17 06:52 Microbiology and Other Data: Microbiology 08/18/17 16:20 Urine Culture - Final Urine 08/18/17 11:46 Aerobic Blood Culture - Preliminary Blood Venous No Growth Day 1 Anaerobic Blood Culture - Preliminary No Growth Day 1 08/18/17 11:46 Aerobic Blood Culture - Preliminary Blood Venous No Growth Day 1 Anaerobic Blood Culture - Preliminary No Growth Day 1 Assess/Plan/Problems-Billing Assessment: Ms. Kwon is a 67-year-old female patient with a PMH significant for depression, self-injurious behavior, overdose attempt, history of CKD, DM, hypothyroidism, HTN, and hyperlipidemia. She was initially sent for evaluation of hallucinations and aggressive behaviors and was found to also have a UTI. - Patient Problems (1) Altered mental status Comment: - Resolved - Acute delirium, suspected to be secondary to UTI but urine culture with no growth - Patient appears to be back at baseline, no noted hallucinations or aggressive behaviors - History of dementia, ? behaviors vs acute infection (2) UTI (urinary tract infection) Comment: - Afebrile and no leukocytosis - UA with positive leukocyte esterase - Urine culture with no growth - Received 3 doses of Ceftriaxone (3) CKD stage 3 due to type 2 diabetes mellitus Comment: - Creatinine within baseline (slightly improved from baseline) (4) DM2 (diabetes mellitus, type 2) Comment: - With associated peripheral neuropathy - Glucose 140-160's - Continue Lispro SS and Lyrica (for peripheral neuropathy) - Resume glipizide and pioglitazone at discharge (5) HTN (hypertension) Comment: - Normotensive, SBP 120-150's - Continue metoprolol and Dyazide (also used for chronic peripheral edema) (6) Full code status (7) DVT prophylaxis Comment: - SQ heparin and TEDS, given chronic BLE edema Status and Disposition: Inpatient. Patient is medically stable for discharge home today. Will need re- evaluation by [facility] prior to return there in order to determine if patient is safe to return.
[2017-08-23] MEDS: Pregabalin CAP(*) 25 MG PO SCH (20:16)
[2017-08-23] MEDS: Atorvastatin* 20 MG TAB PO SCH (20:17)
[2017-08-24] MEDS: Heparin VIAL(*) 5000 UNITS/ML VIAL (FIVE THOUSAND) SUBCUT SCH ×3 (05:31→21:21)
[2017-08-24] MEDS: Levothyroxine TAB* 100 MCG TAB PO SCH (05:31)
[2017-08-24] MEDS: Insulin LISPRO* 1 UNITS UNIT SUBCUT SCH ×3 (08:18→17:45)
[2017-08-24] MEDS: Venlafaxine EXT RELEASE CAP* 75 MG PO SCH (08:19)
[2017-08-24] MEDS: Famotidine TAB* 20 MG PO SCH ×2 (08:20→20:17)
[2017-08-24] MEDS: Triamterene/HCTZ 37.5-25 MG* CAP PO SCH (08:20)
[2017-08-24] MEDS: busPIRone TAB* 15 MG PO SCH ×2 (08:20→20:17)
[2017-08-24] MEDS: Metoprolol Succinate XL TAB* 25 MG PO SCH (08:20)
--- NOTE | 2017-08-24 10:48 | PN ---
Subjective Date of Service: 08/24/17 Interval History: patient reports she is feeling "good" today. She would like to go home. She doesn't remember discussing that [facility] is coming today for an evaluation to determine if she is stable to go back to her -previous living arrangement. She denies hallucination. She is currently reading in bed. She denies any pain. Reports good appetite. feels steady on her feet. Family History: Unchanged from Admission Social History: Unchanged from Admission Past Medical History: Unchanged from Admission Objective Active Medications: Acetaminophen (Tylenol Tab*) 650 mg PO Q4H PRN PRN Reason: FEVER/PAIN Atorvastatin Calcium (Lipitor*) 20 mg PO BEDTIME [facility] Last Admin: 08/23/17 20:17 Dose: 20 mg Buspirone HCl (Buspar Tab *) 15 mg PO BID [facility] Last Admin: 08/24/17 08:20 Dose: 15 mg Dextrose (D50w Syringe 50 Ml*) 12.5 gm IV PUSH .FOR FS < 60 - SS PRN PRN Reason: FS < 60 Famotidine (Pepcid Tab*) 20 mg PO BID [facility] Last Admin: 08/24/17 08:20 Dose: 20 mg Heparin Sodium (Porcine) (Heparin Vial(*)) 5,000 units SUBCUT Q8HR [facility] Last Admin: 08/24/17 05:31 Dose: 5,000 units Insulin Human Lispro (Humalog*) 0 units SUBCUT AC [facility]; Protocol Last Admin: 08/24/17 08:18 Dose: 3 units Levothyroxine Sodium (Synthroid Tab*) 100 mcg PO DAILY@0600 [facility] Last Admin: 08/24/17 05:31 Dose: 100 mcg Metoprolol Succinate (Toprol Xl Tab*) 25 mg PO DAILY [facility] Last Admin: 08/24/17 08:20 Dose: 25 mg Ondansetron HCl (Zofran Inj*) 4 mg IV Q6H PRN PRN Reason: NAUSEA Pregabalin (Lyrica Cap(*)) 75 mg PO BEDTIME [facility] Last Admin: 08/23/17 20:16 Dose: 75 mg Triamterene/HCTZ (Dyazide Cap*) 2 cap PO DAILY [facility] Last Admin: 08/24/17 08:20 Dose: 2 cap Venlafaxine HCl (Effexor Xr Cap*) 300 mg PO DAILY [facility] Last Admin: 08/24/17 08:19 Dose: 300 mg Vital Signs - 8 hr 08/24/17 08/24/17 07:36 09:46 Temperature 98.1 F Pulse Rate 85 Respiratory 18 18 Rate Blood Pressure 135/56 (mmHg) O2 Sat by Pulse 97 97 Oximetry Oxygen Devices in Use Now: None Appearance: obese female laying in bed in NAD, A+O Eyes: No Scleral Icterus, PERRLA Ears/Nose/Mouth/Throat: Mucous Membranes Moist Neck: NL Appearance and Movements; NL JVP Respiratory: Symmetrical Chest Expansion and Respiratory Effort, Clear to Auscultation Cardiovascular: NL Sounds; No Murmurs; No JVD, RRR, - - trace edema b/l LE Abdominal: NL Sounds; No Tenderness; No Distention, - - obese Skin: No Rash or Ulcers, No Nodules or Sclerosis Neurological: Alert and Oriented x 3, NL Sensation, NL Muscle Strength and Tone Lines/Tubes/Other Access: Clean, Dry and Intact Peripheral IV Nutrition: Taking PO's Result Diagrams: 08/22/17 04:21 08/20/17 06:52 Microbiology and Other Data: Microbiology 08/18/17 16:20 Urine Culture - Final Urine 08/18/17 11:46 Aerobic Blood Culture - Preliminary Blood Venous No Growth Day 1 Anaerobic Blood Culture - Preliminary No Growth Day 1 08/18/17 11:46 Aerobic Blood Culture - Preliminary Blood Venous No Growth Day 1 Anaerobic Blood Culture - Preliminary No Growth Day 1 Assess/Plan/Problems-Billing Assessment: Ms. Kwon is a 67-year-old female patient with a PMH significant for depression, self-injurious behavior, overdose attempt, history of CKD, DM, hypothyroidism, HTN, and hyperlipidemia. She was initially sent for evaluation of hallucinations and aggressive behaviors and was found to also have a UTI. - Patient Problems (1) Altered mental status Comment: - Resolved - Acute delirium, suspected to be secondary to UTI but urine culture with no growth - Patient appears to be back at baseline, no noted hallucinations or aggressive behaviors - History of dementia, ? behaviors vs acute infection (2) UTI (urinary tract infection) Comment: - Afebrile and no leukocytosis - UA with positive leukocyte esterase - Urine culture with no growth - Received 3 doses of Ceftriaxone (3) CKD stage 3 due to type 2 diabetes mellitus Comment: - Creatinine within baseline (slightly improved from baseline) (4) DM2 (diabetes mellitus, type 2) Comment: - With associated peripheral neuropathy - Glucose 130-180's - Continue Lispro SS and Lyrica (for peripheral neuropathy) - Resume glipizide and pioglitazone at discharge (5) HTN (hypertension) Comment: - Normotensive, SBP 120-140's - Continue metoprolol and Dyazide (also used for chronic peripheral edema) (6) Full code status (7) DVT prophylaxis Comment: - SQ heparin and TEDS, given chronic BLE edema Status and Disposition: Inpatient. Patient is medically stable for discharge home today. Will need re- evaluation by [facility] prior to return there in order to determine if patient is safe to return.
[2017-08-24] MEDS: Atorvastatin* 20 MG TAB PO SCH (20:16)
[2017-08-24] MEDS: Pregabalin CAP(*) 25 MG PO SCH (20:16)
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
[2017-08-25] MEDS: Levothyroxine TAB* 100 MCG TAB PO SCH (05:41)
[2017-08-25] MEDS: Heparin VIAL(*) 5000 UNITS/ML VIAL (FIVE THOUSAND) SUBCUT SCH ×2 (05:41→12:50)
[2017-08-25] MEDS: Insulin LISPRO* 1 UNITS UNIT SUBCUT SCH ×3 (09:00→17:33)
[2017-08-25] MEDS: Venlafaxine EXT RELEASE CAP* 75 MG PO SCH (09:01)
[2017-08-25] MEDS: busPIRone TAB* 15 MG PO SCH (09:01)
[2017-08-25] MEDS: Triamterene/HCTZ 37.5-25 MG* CAP PO SCH (09:01)
[2017-08-25] MEDS: Famotidine TAB* 20 MG PO SCH (09:01)
[2017-08-25] MEDS: Metoprolol Succinate XL TAB* 25 MG PO SCH (09:01)
--- NOTE | 2017-08-25 11:22 | DCNOTE ---
Subjective Date of Service: 08/25/17 Interval History: Patient is eexcited to be able to go home today. She was talking to her daughtr on the phone Shyanne was able to speak with her daughter - she states she has no concerns with her DC today. the patient offers no complaints. reports she slept well. Reports good appetite. Feels steady on her feet. Family History: Unchanged from Admission Social History: Unchanged from Admission Past Medical History: Unchanged from Admission Objective Active Medications: Acetaminophen (Tylenol Tab*) 650 mg PO Q4H PRN PRN Reason: FEVER/PAIN Atorvastatin Calcium (Lipitor*) 20 mg PO BEDTIME [facility] Last Admin: 08/24/17 20:16 Dose: 20 mg Buspirone HCl (Buspar Tab *) 15 mg PO BID [facility] Last Admin: 08/25/17 09:01 Dose: 15 mg Dextrose (D50w Syringe 50 Ml*) 12.5 gm IV PUSH .FOR FS < 60 - SS PRN PRN Reason: FS < 60 Famotidine (Pepcid Tab*) 20 mg PO BID [facility] Last Admin: 08/25/17 09:01 Dose: 20 mg Heparin Sodium (Porcine) (Heparin Vial(*)) 5,000 units SUBCUT Q8HR [facility] Last Admin: 08/25/17 05:41 Dose: 5,000 units Insulin Human Lispro (Humalog*) 0 units SUBCUT AC [facility]; Protocol Last Admin: 08/25/17 09:00 Dose: 2 units Levothyroxine Sodium (Synthroid Tab*) 100 mcg PO DAILY@0600 [facility] Last Admin: 08/25/17 05:41 Dose: 100 mcg Metoprolol Succinate (Toprol Xl Tab*) 25 mg PO DAILY [facility] Last Admin: 08/25/17 09:01 Dose: 25 mg Ondansetron HCl (Zofran Inj*) 4 mg IV Q6H PRN PRN Reason: NAUSEA Pregabalin (Lyrica Cap(*)) 75 mg PO BEDTIME [facility] Last Admin: 08/24/17 20:16 Dose: 75 mg Triamterene/HCTZ (Dyazide Cap*) 2 cap PO DAILY [facility] Last Admin: 08/25/17 09:01 Dose: 2 cap Venlafaxine HCl (Effexor Xr Cap*) 300 mg PO DAILY [facility] Last Admin: 08/25/17 09:01 Dose: 300 mg Vital Signs - 8 hr 08/25/17 08/25/17 08/25/17 03:32 08:08 09:13 Temperature 97.9 F 97.8 F Pulse Rate 67 78 Respiratory 16 18 20 Rate Blood Pressure 137/63 133/67 (mmHg) O2 Sat by Pulse 97 97 97 Oximetry 08/25/17 09:20 Temperature Pulse Rate Respiratory Rate Blood Pressure (mmHg) O2 Sat by Pulse 97 Oximetry Oxygen Devices in Use Now: None Appearance: 67 yo female A+Ox3 in NAD Eyes: No Scleral Icterus, PERRLA Ears/Nose/Mouth/Throat: NL Teeth, Lips, Gums, Mucous Membranes Moist Neck: NL Appearance and Movements; NL JVP Respiratory: Symmetrical Chest Expansion and Respiratory Effort, Clear to Auscultation Cardiovascular: NL Sounds; No Murmurs; No JVD, RRR, No Edema Abdominal: NL Sounds; No Tenderness; No Distention, - - obese Extremities: No Edema, No Clubbing, Cyanosis Skin: No Rash or Ulcers, No Nodules or Sclerosis Neurological: Alert and Oriented x 3, NL Sensation, NL Gait, NL Muscle Strength and Tone Lines/Tubes/Other Access: Clean, Dry and Intact Peripheral IV Nutrition: Taking PO's Result Diagrams: 08/22/17 04:21 08/20/17 06:52 Microbiology and Other Data: Microbiology 08/18/17 16:20 Urine Culture - Final Urine 08/18/17 11:46 Aerobic Blood Culture - Preliminary Blood Venous No Growth Day 1 Anaerobic Blood Culture - Preliminary No Growth Day 1 08/18/17 11:46 Aerobic Blood Culture - Preliminary Blood Venous No Growth Day 1 Anaerobic Blood Culture - Preliminary No Growth Day 1 Assess/Plan/Problems-Billing Assessment: Ms. Kwon is a 67-year-old female patient with a PMH significant for depression, self-injurious behavior, overdose attempt, history of CKD, DM, hypothyroidism, HTN, and hyperlipidemia. She was initially sent for evaluation of hallucinations and aggressive behaviors and was found to also have a UTI. - Patient Problems (1) Altered mental status Comment: - Resolved - Acute delirium, suspected to be secondary to UTI but urine culture with no growth - Patient appears to be back at baseline, no noted hallucinations or noted aggression - History of dementia, ? behaviors vs acute infection - Appreciate psych consult - feels that she is at her baseline with no need fo rmedication changes or psych admission deaming patient safe to return back to [facility] (2) UTI (urinary tract infection) Comment: - Afebrile and no leukocytosis - UA with positive leukocyte esterase - Urine culture with no growth - Received 3 doses of Ceftriaxone (3) CKD stage 3 due to type 2 diabetes mellitus Comment: - Creatinine within baseline (slightly improved from baseline) (4) DM2 (diabetes mellitus, type 2) Comment: - With associated peripheral neuropathy - Glucose 130-180's - Continue Lispro SS and Lyrica (for peripheral neuropathy) - Resume glipizide and pioglitazone at discharge (5) HTN (hypertension) Comment: - Normotensive, SBP 120-140's - Continue metoprolol and Dyazide (also used for chronic peripheral edema) (6) Full code status (7) DVT prophylaxis Comment: - SQ heparin and TEDS, given chronic BLE edema Status and Disposition: Inpatient. Patient is medically stable for discharge home today. Plan to DC back to [place]
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
[2017-08-25 15:39] VITALS: BP 133/52
== END 2017-08-25 18:00 | disposition home or self-care (01) | DRG 690 ==
LOC: ED 10:39 → MED 08-19 16:42
PROVIDERS: ADMIT Internal Medicine; ATTEND Internal Medicine
DX: N39.0 Urinary tract infection, site not specified (principal); F03.91 Unspecified dementia, unspecified severity, with behavioral disturbance; F05 Delirium due to known physiological condition; Z68.42 Body mass index [BMI] 45.0-49.9, adult; N17.9 Acute kidney failure, unspecified; F32.9 Major depressive disorder, single episode, unspecified; E11.22 Type 2 diabetes mellitus with diabetic chronic kidney disease; E03.9 Hypothyroidism, unspecified; I12.9 Hypertensive chronic kidney disease with stage 1 through stage 4 chronic kidney disease, or unspecified chronic kidney disease; E78.5 Hyperlipidemia, unspecified; F41.9 Anxiety disorder, unspecified; K21.9 Gastro-esophageal reflux disease without esophagitis; E66.9 Obesity, unspecified; N18.3 Chronic kidney disease, stage 3 (moderate); E11.42 Type 2 diabetes mellitus with diabetic polyneuropathy; R60.9 Edema, unspecified; E86.0 Dehydration; Z91.5 Personal history of self-harm; Z90.49 Acquired absence of other specified parts of digestive tract; Z88.2 Allergy status to sulfonamides; Z82.49 Family history of ischemic heart disease and other diseases of the circulatory system; Z90.710 Acquired absence of both cervix and uterus; Z83.3 Family history of diabetes mellitus; Z91.419 Personal history of unspecified adult abuse; Z79.84 Long term (current) use of oral hypoglycemic drugs
CPT/HCPCS: 36415; 71045; 80048; 80053; 81003; 81015; 83605; 84439; 84443; 84484; 85025; 85610; 85730; 86703; 86803; 87040; 87086; 87340; 99285; A9270-GY; J0696; J1644